=== PATIENT | female | born 1985 | race Caucasian/White ===

== ENCOUNTER → 2020-03-05 16:31 | Outpatient (BNVA) | payer OTHER, SELFPAY | PROVIDERS: Family Provider Nurse Practitioner Family; Visit Provider Nurse Practitioner | DX: R39.9 Unspecified symptoms and signs involving the genitourinary system (principal); M79.604 Pain in right leg; M79.605 Pain in left leg; N91.2 Amenorrhea, unspecified; R10.30 Lower abdominal pain, unspecified; Z68.33 Body mass index [BMI] 33.0-33.9, adult; F17.210 Nicotine dependence, cigarettes, uncomplicated; Z71.89 Other specified counseling | CPT/HCPCS: 81000 ==

== ENCOUNTER 2020-03-06 11:10 | Outpatient (CLI) | payer OTHER, SELFPAY ==
--- NOTE | 2020-03-06 10:15 | US_ITS ---
WS: [id number] TRANSABDOMINAL PELVIC AND TRANSVAGINAL PELVIC ULTRASOUND HISTORY: LEFT LOWER QUADRANT PAIN COMPARISON: 02/07/2018 Uterus: 8.13 cm x 5.5 cm x 4.8 cm. Retroverted uterus. Normal size. No fibroid or mass. Endometrium: 1.3 cm. Normal size and echogenicity. Right ovary: 4.3 cm x 3.0 cm x 3.0 cm. Normal size ovary with small follicles. Normal vascularity. Left ovary: 3.3 cm x 1.9 cm x 1.7 cm. Normal size ovary with normal vascularity. Small follicles. No free fluid. US/US pelvic with transvaginal IMPRESSION: Normal pelvic ultrasound. No evidence for torsion.
== END 2020-03-06 11:11 | disposition home or self-care (01) ==
LOC: RAD 11:12
PROVIDERS: Family Provider Nurse Practitioner Family; Visit Provider Family Medicine
DX: R10.32 Left lower quadrant pain (principal)
CPT/HCPCS: 76830; 76856; 81025

== ENCOUNTER → 2020-06-07 09:31 | Outpatient (BNVA) | payer OTHER, SELFPAY | PROVIDERS: Family Provider Nurse Practitioner Family; Referring Provider Nurse Practitioner Family; Visit Provider Anesthesiology Pain Medicine | DX: M79.7 Fibromyalgia (principal); M54.16 Radiculopathy, lumbar region; M62.830 Muscle spasm of back; F17.210 Nicotine dependence, cigarettes, uncomplicated; Z79.891 Long term (current) use of opiate analgesic; M51.36 Other intervertebral disc degeneration, lumbar region; M47.816 Spondylosis without myelopathy or radiculopathy, lumbar region; M54.9 Dorsalgia, unspecified | CPT/HCPCS: 99204 ==

== ENCOUNTER → 2020-06-24 12:46 | Outpatient (BNVA) | payer OTHER, SELFPAY | PROVIDERS: Family Provider Nurse Practitioner Family; PCP Nurse Practitioner Family; Visit Provider Anesthesiology Pain Medicine | DX: M54.16 Radiculopathy, lumbar region (principal); M54.9 Dorsalgia, unspecified; F17.210 Nicotine dependence, cigarettes, uncomplicated | CPT/HCPCS: 64483; 64484; J1100; J3490 ==

== ENCOUNTER → 2020-07-08 08:44 | Outpatient (BNVA) | payer OTHER, SELFPAY | PROVIDERS: Family Provider Nurse Practitioner Family; PCP Nurse Practitioner Family; Visit Provider Anesthesiology Pain Medicine | DX: M51.17 Intervertebral disc disorders with radiculopathy, lumbosacral region (principal); M47.816 Spondylosis without myelopathy or radiculopathy, lumbar region; M51.36 Other intervertebral disc degeneration, lumbar region; M51.9 Unspecified thoracic, thoracolumbar and lumbosacral intervertebral disc disorder; M54.9 Dorsalgia, unspecified; M62.830 Muscle spasm of back; F17.210 Nicotine dependence, cigarettes, uncomplicated; Z79.891 Long term (current) use of opiate analgesic | CPT/HCPCS: 99214 ==

== ENCOUNTER 2020-08-06 07:53 | Outpatient (CLI) | payer OTHER, SELFPAY ==
--- NOTE | 2020-08-06 08:00 | MR_ITS ---
WS: [id number] MRI CERVICAL SPINE HISTORY: M54.12 - Radiculopathy, cervical region COMPARISON: None available. Straightening of the normal cervical lordosis. Disc spaces and vertebral body heights are normal. Signal within the cervical cord is normal. Visualized posterior fossa is unremarkable. Craniocervical junction, C1 and C2 relationship, odontoid process and soft tissues are normal. C2-C3: Normal. C3-C4: Minimal osteophytic ridging. No stenosis. C4-C5: Normal. C5-C6: Normal. C6-C7: Normal. C7-T1: Normal. Paraspinal soft tissue are normal. MR/MR cervical spin wo con* [id number] IMPRESSION: 1. Mild straightening of the normal cervical lordosis with mild osteophytic ri dging at the C3-4 level. 2. No significant stenosis or disc herniations.
--- NOTE | 2020-08-06 08:45 | MR_ITS ---
WS: [id number] MRI LUMBAR SPINE NONCONTRAST HISTORY: M54.16 - Radiculopathy, lumbar region COMPARISON: 05/03/2018 TECHNIQUE: Sagittal and axial multisequence imaging is submitted. Normal lumbar alignment with no compression fractures or marrow edema. Mild disc space narrowing and desiccation at L4-5. Conus terminates normally at L1. L1-L2: Normal. L2-L3: Normal. L3-L4: Normal. L4-L5: Mild annular disc bulging with a central disc protrusion with associated annular fissure. Very mild contact on the ventral thecal sac and displacement. No encroachment into the foramen or subarti cular recesses. Very minimal facet joint arthritis. L5-S1: Normal. Retroverted uterus. Multiple small peripheral follicles within each ovary. Due to the distribution of the follicles and the number of follicles, polycystic ovarian disease should be considered as a poss ible etiology. MR/MR lumbar spine wo con* [id number] IMPRESSION: 1. No significant central or foraminal stenosis. 2. Mild degenerative disc disease at L4-5 similar to 2018. 3. Shallow central disc protrusion with annular fissure at L4-5.
--- NOTE | 2020-08-06 09:30 | MR_ITS ---
WS: [id number] MRI THORACIC SPINE without contrast. HISTORY: M51.9 - Unspecified thoracic, thoracolumbar and lumbosacral intervertebral disc disorder COMPARISON: None available. TECHNIQUE: Multiplanar sequences are performed in sagittal and axial planes. Normal thoracic alignment. Disc spaces and vertebral body heights are normal. No marrow edema or frac ture. Signal within the cord is normal. No cord atrophy or enlargement. T1-2: Normal. T2-3: Normal. T3-4: Normal. T4-5: Normal. T5-6: Normal. T6-7: Normal. T7-8: Normal. T8-9: Normal. T9-10: Normal. T10-11: Normal. T11-12: Normal. MR/MR thoracic spin wo con* [id number] IMPRESSION: Normal MRI of thoracic spine.
--- NOTE | 2020-08-06 11:16 | XR_ITS ---
WS: [id number] LATERAL LUMBAR SPINE: 4 view. Lateral radiographs are performed in upright neutral, flexion and extension to the patient's toleranc e. AP views are also submitted. HISTORY: SPONDYLOSIS W/O MYELOPATHY OR RADICULOPATHY COMPARISON: 06/29/2018 Increase in lumbar lordosis. 3 mm retrolisthesis of L4. With flexion and extension there is no signif icant increase in the lumbar lordosis or L4 retrolisthesis. Facet joint arthritis is mild at L4-5 and L5-S1. Mild S-shaped curvature lumbar spine. Prior cholecystectomy. XR/XR lumbar spine f/e only [id number] IMPRESSION: 1. Mild S-shaped curvature lumbar spine. 2. Increase in lumbar lordosis. 3. L4 retrolisthesis by 3 mm with no instability.
== END 2020-08-06 07:54 | disposition home or self-care (01) ==
LOC: RADSHAW 07:55
PROVIDERS: Family Provider Nurse Practitioner Family; PCP Nurse Practitioner Family; Visit Provider Anesthesiology Pain Medicine
DX: M54.16 Radiculopathy, lumbar region (principal); M54.12 Radiculopathy, cervical region; M51.9 Unspecified thoracic, thoracolumbar and lumbosacral intervertebral disc disorder; M47.816 Spondylosis without myelopathy or radiculopathy, lumbar region; M40.56 Lordosis, unspecified, lumbar region; M51.36 Other intervertebral disc degeneration, lumbar region; M51.26 Other intervertebral disc displacement, lumbar region
CPT/HCPCS: 72120; 72141; 72146; 72148

== ENCOUNTER → 2020-08-07 10:05 | Outpatient (BNVA) | payer OTHER, SELFPAY | PROVIDERS: Family Provider Nurse Practitioner Family; PCP Nurse Practitioner Family; Visit Provider Anesthesiology Pain Medicine | DX: M51.17 Intervertebral disc disorders with radiculopathy, lumbosacral region (principal); M47.816 Spondylosis without myelopathy or radiculopathy, lumbar region; M51.36 Other intervertebral disc degeneration, lumbar region; M54.9 Dorsalgia, unspecified; M62.830 Muscle spasm of back; Z79.891 Long term (current) use of opiate analgesic | CPT/HCPCS: 99212; 99213 ==

== ENCOUNTER → 2021-01-08 09:30 | Outpatient (BNVA) | payer OTHER, SELFPAY | PROVIDERS: Family Provider Nurse Practitioner Family; PCP Nurse Practitioner Family; Visit Provider Anesthesiology Pain Medicine | DX: G89.29 Other chronic pain (principal); M54.9 Dorsalgia, unspecified; M47.816 Spondylosis without myelopathy or radiculopathy, lumbar region; M51.36 Other intervertebral disc degeneration, lumbar region; M54.16 Radiculopathy, lumbar region; M54.12 Radiculopathy, cervical region; M62.830 Muscle spasm of back; F17.210 Nicotine dependence, cigarettes, uncomplicated; Z79.891 Long term (current) use of opiate analgesic; M79.7 Fibromyalgia; G43.711 Chronic migraine without aura, intractable, with status migrainosus; M13.0 Polyarthritis, unspecified | CPT/HCPCS: 96372; 99204; 99214; J1885 ==

== ENCOUNTER → 2021-01-09 09:06 | Outpatient (BNVA) | payer OTHER, SELFPAY | PROVIDERS: Family Provider Nurse Practitioner Family; PCP Nurse Practitioner Family; Visit Provider Specialist | DX: M79.7 Fibromyalgia (principal); M13.0 Polyarthritis, unspecified; G43.711 Chronic migraine without aura, intractable, with status migrainosus | CPT/HCPCS: 82550; 85651; 86140; 86160; 86162; 86235; 86255; 86376; 86431 ==

== ENCOUNTER → 2021-02-05 10:57 | Outpatient (BNVA) | payer OTHER, SELFPAY | PROVIDERS: Family Provider Nurse Practitioner Family; PCP Nurse Practitioner Family; Visit Provider Anesthesiology Pain Medicine | DX: M54.9 Dorsalgia, unspecified (principal); M47.816 Spondylosis without myelopathy or radiculopathy, lumbar region; M51.36 Other intervertebral disc degeneration, lumbar region; M54.16 Radiculopathy, lumbar region; M54.12 Radiculopathy, cervical region; M62.830 Muscle spasm of back; F17.210 Nicotine dependence, cigarettes, uncomplicated | CPT/HCPCS: 99213 ==

== ENCOUNTER 2021-03-14 13:16 | Outpatient (CLI) | payer OTHER, SELFPAY ==
--- NOTE | 2021-03-14 13:21 | MM_ITS ---
WS: [id number] DIAGNOSTIC BILATERAL DIGITAL MAMMOGRAM WITH CAD Bilateral breast ultrasound, limited HISTORY: N63.21 - Unspecified lump in the left breast, RIGHT nodules also. COMPARISON: None available. TECHNIQUE: Bilateral craniocaudad, mediolateral oblique, and mediolateral views are submitted. Spot c ompression LEFT CC, RIGHT and LEFT MLO views. Computer aided detection utilized. Breast composition: There are scattered areas of fibroglandular density. Bilateral palpable triangular markers are placed over the upper outer quadrant of each breast. No mas s is identified. There is no distortion. No suspicious findings within either breast. Bilateral breast ultrasound, limited. RIGHT breast ultrasound at 12:00 is negative. No suspicious masses or shadowing. LEFT breast ultrasound at 12 and 1:00 is negative. No masses or shadowing. MM/[place] [id number] IMPRESSION: BI-RADS: 2-Benign FOLLOW UP: 1 Year Follow-up
== END 2021-03-14 13:17 | disposition home or self-care (01) ==
LOC: RADSHAW 13:18
PROVIDERS: Family Provider Nurse Practitioner Family; PCP Nurse Practitioner Family; Visit Provider Nurse Practitioner
DX: N63.21 Unspecified lump in the left breast, upper outer quadrant (principal); N63.11 Unspecified lump in the right breast, upper outer quadrant
CPT/HCPCS: 76642; 77066

== ENCOUNTER → 2021-04-18 16:24 | Outpatient (BNVA) | payer OTHER, SELFPAY | PROVIDERS: Family Provider Nurse Practitioner Family; PCP Nurse Practitioner Family; Visit Provider Registered Nurse Neonatal Intensive Care | DX: Z20.822 Contact with and (suspected) exposure to COVID-19 (principal) | CPT/HCPCS: 87635 ==

== ENCOUNTER → 2021-11-14 09:37 | Outpatient (BNVA) | payer BC, SELFPAY | PROVIDERS: Family Provider Nurse Practitioner Family; PCP Nurse Practitioner Family; Visit Provider Surgery | DX: Z20.822 Contact with and (suspected) exposure to COVID-19 (principal); Z11.52 Encounter for screening for COVID-19 | CPT/HCPCS: 87635 ==

== ENCOUNTER 2021-11-19 08:49 | Day surgery (SDC) | payer BC, SELFPAY ==
[2021-11-17 12:20] VITALS: BMI 33.1
--- NOTE | 2021-11-19 09:38 | P.ANESASSM_ITS ---
Pre-Anesthetic Assessment Height/Weight: Height 1.63 m Weight 87.543 kg Preop Diagnosis: diagnostic Operation Date: 11/19/21 10:15 Proposed Procedures p Colonoscopy 81333/k 59.0/constipation(Not Applicable) - Carl Smith MD Familial anesthetic complications: None Was Beta Roman taken within 24 hours: N/A Was Clonidine taken within 24 hours: N/A Social Tobacco and No alcohol Exam alert, oriented x 3 and regular rate & rhythm Airway Submandibular: within normal limits Cervical ROM: within normal limits Mallampati: Class II Dentition: full Pulmonary Chronic Obstructive Pulmonary Disease Metabolic Morbid Obesity [facility] [place] Fibromyalgia and Lower Back Pain Neuropsych Headache Anesthetic Plan ASA status: 3 Anesthesia: MAC Medications/Allergies Home Medications Medication Instructions Recorded Confirmed Last Taken Type duloxetine 30 mg capsule,delayed 30 mg PO DAILY #30 cap 02/05/21 11/17/21 Unknown Rx release (Cymbalta) lactulose 10 gram/15 mL (15 mL) 15 ml PO BID 28 Days #840 ml 10/21/21 11/17/21 Unknown Rx oral solution phentermine 37.5 mg tablet 37.5 mg PO DAILY 11/17/21 11/17/21 11/13/21 History Allergies Allergy/AdvReac Type Severity Reaction Status Date / Time No Known Allergies Allergy Verified 10/21/21 09:42 [facility] Anesthesia Medical History Chronic migraine Hx of migraines Ovarian cyst Salivary duct calculi Urinary tract infection Surgical History History of ovarian cystectomy Hx of cholecystectomy Hx of tubal ligation Family History Other Cancer Denies family history of Diabetes Dementia Hypertension Stroke Social History Smoking and tobacco status: former smoker Quit status (tobacco): considering quitting Second hand smoke exposure: Yes Smoking risk assessment/counseling performed?: Yes Alcohol intake: never Desire information about alcohol rehabilitation?: No Counseling given: No Desire information about substance/drug rehabilitation?: No Counseling given: No Adopted: No Caregiver/support person: No Lives independently: Yes Household members: children Housing: House Marital status: service: No History of recent travel: No Current gender identity: Female Female Reproductive History Date of last menstrual period: 12/23/20 Data Anesthesia Cardiac Studies: No Data to Display
[2021-11-19 09:47] VITALS: BP 124/70; PULSE 79; RESP 18; TEMP 36.1; O2SAT 99
--- NOTE | 2021-11-19 09:49 | W.PM.OPSFHP ---
Same Day Surgery H&P Indication for Procedure/HPI DATE OF PROCEDURE: November 19, 2021 CHIEF COMPLAINT/INDICATIONFOR SURGICAL PROCEDURE: colonoscopy PREOP DIAGNOSIS: diagnostic PLANNED PROCEDURE: Operation Date: 11/19/21 10:15 Proposed Procedures p Colonoscopy 83119/k 59.0/constipation(Not Applicable) - Carl Smith MD Medications/Allergies* Home Medications Medication Instructions Recorded Confirmed Type phentermine 37.5 mg tablet 37.5 mg PO DAILY 11/17/21 11/17/21 History Allergies/Adverse Reactions Allergy/AdvReac Type Severity Reaction Status Date / Time No Known Allergies Allergy Verified 11/19/21 09:48 Pertinent History/Comorbid Conditions* Medical History (Updated 10/21/21 @ 10:00 by Carl Smith MD) Chronic migraine Hx of migraines Ovarian cyst Salivary duct calculi Urinary tract infection Surgical History (Updated 10/21/21 @ 10:00 by Carl Smith MD) History of ovarian cystectomy Hx of cholecystectomy Hx of tubal ligation Family History (Updated 02/04/21 @ 15:16 by GABRIELLA Thomason) Cancer Denies family history of Diabetes Dementia Hypertension Stroke Social History Smoking and tobacco status: former smoker Quit status (tobacco): considering quitting Second hand smoke exposure: Yes Smoking risk assessment/counseling performed?: Yes Alcohol intake: never Desire information about alcohol rehabilitation?: No Counseling given: No Desire information about substance/drug rehabilitation?: No Counseling given: No Adopted: No Caregiver/support person: No Lives independently: Yes Household members: children Housing: House Marital status: service: No History of recent travel: No Current gender identity: Female Pertinent Exam Findings alert, oriented x 3 and regular rate & rhythm Recommendations Surgery/Procedure today Coding Level of Care Code Acute 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
[2021-11-19] MEDS: sodium chloride 0.9% 1,000 ML 30 ML IV (09:55)
[2021-11-19 10:38] VITALS: BP 90/56; PULSE 78; RESP 16; TEMP 36.1; O2SAT 95
[2021-11-19 10:52] VITALS: BP 96/66; PULSE 64; RESP 18; O2SAT 97
--- NOTE | 2021-11-19 10:59 | ANE.PACU2 ---
Inpatient post-anesthesia follow up: Airway intact: Yes Vital signs: Temperature 97 F Pulse Rate 64 Respiratory Rate 18 Blood Pressure 96/66 Pulse Oximetry 97 Oxygen Delivery Me thod Room Air Oxygen Flow Rate Fraction of Inspir ed Oxygen Hydration adequate: Yes Nausea and vomiting: No Pain level: 1 Mental status: Baseline
== END 2021-11-19 11:05 | disposition home or self-care (01) ==
PROVIDERS: PCP Nurse Practitioner Family; Visit Provider Surgery
PROC: 0DJD8ZZ Inspection of Lower Intestinal Tract, Via Natural or Artificial Opening Endoscopic (ICD-10-PCS; CPT 45378; principal; 2021-11-19 10:15)
DX: K59.00 Constipation, unspecified (principal); Z87.891 Personal history of nicotine dependence; D12.4 Benign neoplasm of descending colon; J44.9 Chronic obstructive pulmonary disease, unspecified; E66.01 Morbid (severe) obesity due to excess calories; Z68.33 Body mass index [BMI] 33.0-33.9, adult; M79.7 Fibromyalgia
CPT/HCPCS: 45385; 88305; J2704; J7030

== ENCOUNTER → 2022-01-28 11:43 | Outpatient (BNVA) | payer BC, MEDICAID, SELFPAY | PROVIDERS: PCP Nurse Practitioner Family; Visit Provider Nurse Practitioner Family | DX: R07.9 Chest pain, unspecified (principal) | CPT/HCPCS: 71046; 80053; 84443; 85025 ==

== ENCOUNTER 2022-08-14 11:01 | Outpatient (CLI) | payer BC, MEDICAID, SELFPAY ==
--- NOTE | 2022-08-14 11:12 | MM_ITS ---
WS: [id number] Bilateral diagnostic 3D tomosynthesis digital mammogram, 08/14/2022 Clinical Data: NIPPLE DISCHARGE Comparison: 03/14/2021 Findings: The breast parenchymal pattern pattern shows fibroglandular tissue. There are no spiculated masses or clustered calcifications. There are no secondary signs of carcinoma. There are small lymph nodes in both axilla. Impression: 1. Negative bilateral mammograms unchanged. 2. Recommend annual screening mammograms. MM/[place] [id number] BIRADS: 1-Negative FOLLOW UP: 1 Year Follow-up The CAD furnace checker was used.
== END 2022-08-14 11:02 | disposition home or self-care (01) ==
LOC: RAD 11:05
PROVIDERS: PCP Nurse Practitioner Family; Visit Provider Nurse Practitioner Family
DX: N64.52 Nipple discharge (principal)
CPT/HCPCS: 77062; G0279

== ENCOUNTER → 2022-10-12 15:33 | Outpatient (BNVA) | payer BC, MEDICAID, SELFPAY | PROVIDERS: PCP Family Medicine; Visit Provider Family Medicine | DX: R10.31 Right lower quadrant pain (principal) | CPT/HCPCS: 81000; 85025 ==

== ENCOUNTER 2022-10-14 09:28 | Outpatient (CLI) | payer BC, MEDICAID, SELFPAY ==
--- NOTE | 2022-10-14 09:30 | US_ITS ---
WS: [id number] Complete ABDOMINAL ULTRASOUND HISTORY: R10.31 - Right lower quadrant pain COMPARISON: 01/26/2011 Liver: 16.0 cm in length. Liver is normal size and echogenicity with no mass or intrahepatic dilatati on. Portal Vein: Normal hepatopetal flow with monophasic waveform. Gallbladder: Prior cholecystectomy. Pancreas: Normal size and echogenicity. CBD: 0.5 cm. Right kidney: 12.1 cm x 4.5 cm x 4.8 cm. No mass, cortical thickening or hydronephrosis. Left kidney: 12.5 cm x 6.3 cm x 5.1 cm. No mass, cortical thickening or hydronephrosis. Spleen: Normal size and echogenicity. Abdominal aorta and IVC are within normal limits. No ascites. US/US abdomen complete* [id number] IMPRESSION: 1. Prior cholecystectomy. 2. Otherwise normal.
--- NOTE | 2022-10-14 12:45 | US_ITS ---
WS: [id number] TRANSABDOMINAL PELVIC AND TRANSVAGINAL PELVIC ULTRASOUND HISTORY: R10.31 - Right lower quadrant pain COMPARISON: 03/06/2020 Uterus: 9.1 cm x 5.7 cm x 5.2 cm. Normal size anteverted uterus with slight retroflexion. During tay svaginal imaging there is poor retroflexion of the uterus. No fibroid or mass. Endometrium: 1.4 cm. Normal homogeneity. No mass or increased vascularity. Right ovary: 5.2 cm x 4.0 cm x 4.1 cm. Mildly enlarged ovary secondary to a simple cyst measuring 3.4 x 3.3 x 2.9 cm. No solid component. The adjacent ovary is normal. Left ovary: 3.8 cm x 3.0 cm x 2.6 cm. Normal size ovary. No solid mass. Multiple small follicles. Nor mal vascularity. Free fluid: No free fluid. US/US pelv w/transvag [id number] IMPRESSION: 1. Normal endometrium. 2. Simple RIGHT ovarian cyst (O-RADS 2). No follow-up necessary.
== END 2022-10-14 09:29 | disposition home or self-care (01) ==
LOC: RAD 09:28
PROVIDERS: PCP Family Medicine; Visit Provider Family Medicine
DX: N83.291 Other ovarian cyst, right side (principal)
CPT/HCPCS: 76700; 76830; 76856

== ENCOUNTER → 2023-01-28 14:59 | Outpatient (BNVA) | payer BC, MEDICAID, SELFPAY | PROVIDERS: PCP Family Medicine; Visit Provider Nurse Practitioner | DX: R10.2 Pelvic and perineal pain (principal); E66.9 Obesity, unspecified | CPT/HCPCS: 80053; 81000; 85025 ==

== ENCOUNTER → 2023-02-08 14:18 | Outpatient (BNVA) | payer BC, MEDICAID, SELFPAY | PROVIDERS: PCP Family Medicine; Visit Provider Family Medicine | DX: R10.31 Right lower quadrant pain (principal); N76.0 Acute vaginitis; B96.89 Other specified bacterial agents as the cause of diseases classified elsewhere | CPT/HCPCS: 81000 ==

== ENCOUNTER → 2023-04-13 09:30 | Outpatient (BNVA) | payer BC, MEDICAID, SELFPAY | PROVIDERS: PCP Family Medicine; Referring Provider Nurse Practitioner Family; Visit Provider Physician Assistant | DX: M54.12 Radiculopathy, cervical region (principal) | CPT/HCPCS: 72050 ==

== ENCOUNTER 2023-04-21 10:41 | Outpatient (CLI) | payer BC, MEDICAID, SELFPAY ==
--- NOTE | 2023-04-21 11:00 | MR_ITS ---
WS: [id number] MRI CERVICAL SPINE NONCONTRAST HISTORY: cervical spine pain LEFT arm radiculopathy. COMPARISON: 08/06/2020 Technique: Multiplanar, multisequence noncontrast imaging of the cervical spine. Straightening and slight reversal of the normal cervical lordosis. Reversal centered at C4-5. New sin ce the prior study from 2019. Signal within the cervical cord is normal. Visualized posterior fossa is unremarkable. Craniocervical junction, C1 and C2 relationship, odontoid process and soft tissues are normal. C2-C3: Normal. C3-C4: Mild disc bulging and osteophytosis. No significant stenosis. C4-C5: Small bilateral foraminal osteophytes. No significant stenosis. C5-C6: Normal. C6-C7: Normal. C7-T1: Normal. Paraspinal soft tissue are normal. IMPRESSION: 1. No significant central or foraminal stenosis. 2. New reversal the normal cervical lordosis with cervical spine straightening. May be due to muscle spasm. 3. Very small foraminal osteophytes at C3-4 and C4-5 without significant stenosis. No disc protrusion s or herniations.
== END 2023-04-21 10:42 | disposition home or self-care (01) ==
PROVIDERS: PCP Family Medicine; Visit Provider Physician Assistant
DX: M54.12 Radiculopathy, cervical region (principal); M25.78 Osteophyte, vertebrae; M40.50 Lordosis, unspecified, site unspecified
CPT/HCPCS: 72141

== ENCOUNTER → 2023-05-13 11:30 | Outpatient (BNVA) | payer BC, MEDICAID, SELFPAY | PROVIDERS: PCP Family Medicine; Visit Provider Family Medicine | DX: G43.711 Chronic migraine without aura, intractable, with status migrainosus (principal); R10.32 Left lower quadrant pain; R23.2 Flushing | CPT/HCPCS: 82672; 84144 ==

== ENCOUNTER 2023-05-26 08:43 | Outpatient (CLI) | payer BC, MEDICAID, SELFPAY ==
--- NOTE | 2023-05-26 08:30 | US_ITS ---
WS: [id number] Complete ABDOMINAL ULTRASOUND HISTORY: R10.32 - Left lower quadrant pain COMPARISON: 10/14/2022 Liver: 15.4 cm in length. Normal size liver and echogenicity. No bile duct dilatation or mass. Portal Vein: Normal hepatopetal flow with monophasic waveform. Gallbladder: Cholecystectomy. CBD: 0.6 cm Pancreas: Head and body are negative. The tail is obscured by bowel gas. Right kidney: 10.9 cm x 4.0 x 4.3 cm. Cortex:1.1 cm. Normal size and echogenicity. No hydronephrosis or mass. Left kidney: 11.1 cm x 4.8 cm x 4.9 cm. Cortex: 1.2 cm. Normal size and echogenicity. No hydronephrosis or mass. Spleen: Normal. Aorta and IVC: Unremarkable abdominal aorta and IVC. Additional imaging of the LEFT lower quadrant is negative. Impression: 1. Prior cholecystectomy. 2. Otherwise no abnormality within the abdominal ultrasound.
== END 2023-05-26 08:44 | disposition home or self-care (01) ==
PROVIDERS: Visit Provider Family Medicine
DX: R10.32 Left lower quadrant pain (principal); Z90.49 Acquired absence of other specified parts of digestive tract
CPT/HCPCS: 76700

== ENCOUNTER → 2023-06-02 14:58 | Outpatient (BNVA) | payer BC, MEDICAID, SELFPAY | PROVIDERS: Visit Provider Family Medicine | DX: J02.9 Acute pharyngitis, unspecified (principal); G43.909 Migraine, unspecified, not intractable, without status migrainosus; J03.90 Acute tonsillitis, unspecified | CPT/HCPCS: 87071; 87880 ==

== ENCOUNTER 2023-06-14 06:00 | Outpatient (RCR) | payer BC, MEDICAID, SELFPAY | END 2023-06-29 23:59 | disposition home or self-care (01) | LOC: APT 06:00 | PROVIDERS: Visit Provider General Practice | DX: G89.4 Chronic pain syndrome (principal); M54.2 Cervicalgia | CPT/HCPCS: 97161 ==

== ENCOUNTER → 2023-08-05 08:29 | Outpatient (BNVA) | payer BC, MEDICAID, SELFPAY | PROVIDERS: PCP Family Medicine; Visit Provider Orthopaedic Surgery | DX: M54.2 Cervicalgia (principal) | CPT/HCPCS: 72040 ==

== ENCOUNTER → 2023-08-10 15:20 | Outpatient (BNVA) | payer BC, MEDICAID, SELFPAY | PROVIDERS: PCP Family Medicine; Visit Provider Family Medicine | DX: J02.9 Acute pharyngitis, unspecified (principal); J01.90 Acute sinusitis, unspecified; J03.90 Acute tonsillitis, unspecified; J01.00 Acute maxillary sinusitis, unspecified | CPT/HCPCS: 87071; 87880 ==

== ENCOUNTER → 2023-10-05 15:04 | Outpatient (BNVA) | payer BC, MEDICAID, SELFPAY | PROVIDERS: PCP Family Medicine; Visit Provider Student in an Organized Health Care Education/Training Program | DX: M25.531 Pain in right wrist; M25.532 Pain in left wrist; G56.22 Lesion of ulnar nerve, left upper limb | CPT/HCPCS: 73110 ==

== ENCOUNTER → 2023-10-20 14:51 | Outpatient (BNVA) | payer BC, MEDICAID, SELFPAY | PROVIDERS: PCP Family Medicine; Visit Provider Registered Nurse Neonatal Intensive Care | DX: J02.9 Acute pharyngitis, unspecified (principal) | CPT/HCPCS: 87880 ==

== ENCOUNTER 2023-11-17 10:09 | Day surgery (SDC) | payer BC, MEDICAID, SELFPAY ==
[2023-11-17] VITALS (16 sets, daily range): BP systolic 123–149; BP diastolic 68–78; PULSE 58–96; RESP 12–21; TEMP 36.2–37.1; O2SAT 91–99; BMI 35.5
--- NOTE | 2023-11-17 10:34 | P.ANESASSM_ITS ---
Pre-Anesthetic Assessment Height/Weight: Height 1.63 m Weight 93.894 kg O2 Del Method Room Air 11/17/23 10:22 Operation Date: 11/17/23 11:40 Proposed Procedures p Cubital Tunnel Release WITH POSSIBLE ULNAR NERVE TRANSPOSITION(Left) - Samir Carri, DO s Guyon Canal Release(Left) - Samir Carri DO Familial anesthetic complications: None Was Beta Roman taken within 24 hours: N/A Was Clonidine taken within 24 hours: N/A Last intake: Intake Last Liquid Date 11/16/23 Last Liquid Time 20:00 Last Solid Date 11/16/23 Last Solid Time 20:00 Social Tobacco (encouraged smoking cessation) and No alcohol Exam alert, oriented x 3, clear to auscultation bilaterally and regular rate & rhythm Airway Mallampati: Class II Dentition: full and other (crowns) CV/HEM perscribed HCTZ for hypertension after hysterectomy-induced pain Anesthetic Plan ASA status: 2 Anesthesia: General Risk of > 500 ml blood loss (7ml/kg in children): No Medications/Allergies Home Medications Medication Instructions Recorded Confirmed Last Taken Type hydrochlorothiazide 12.5 mg tablet 12.5 mg PO DAILY 01/28/23 11/16/23 1 Day Ago History ~11/15/23 pen needle, diabetic 33 gauge x #100 ea 01/28/23 10/20/23 Unknown Rx duloxetine 60 mg capsule,delayed 60 mg PO DAILY #30 caps 03/29/23 11/16/23 11/16/23 Rx release propranolol 20 mg tablet 20 mg PO .qhs #30 tabs 05/13/23 11/16/23 Unknown Rx sumatriptan succinate 100 mg See Rx Instructions PO .COMPLEX 05/13/23 11/16/23 Unknown Rx tablet (Imitrex) #14 tabs nortriptyline 75 mg capsule 75 mg PO DAILY #30 caps 06/02/23 11/16/23 Unknown Rx rimegepant 75 mg disintegrating 75 mg PO ONCE PRN migraine 06/02/23 11/16/23 Unknown Rx tablet (Nurtec ODT) headache #8 tabs tizanidine 4 mg capsule 4 mg PO .qhs muscle spasticity #30 06/02/23 11/16/23 Unknown Rx caps benzonatate 100 mg capsule 100 mg PO TID PRN cough #30 caps 08/10/23 11/16/23 Unknown Rx fluconazole 150 mg tablet 150 mg PO DAILY 3 days #3 tabs 09/08/23 11/16/23 Unknown Rx Allergies Allergy/AdvReac Type Severity Reaction Status Date / Time No Known Allergies Allergy Verified 11/16/23 09:13 [facility] Anesthesia Medical History Obesity (BMI 30-39.9) Allergic rhinitis due to allergen Sebaceous cyst of axilla Salivary duct calculi Ovarian cyst Urinary tract infection Hx of migraines Chronic migraine Surgical History History of ovarian cystectomy Hx of cholecystectomy Hx of tubal ligation Family History Other Cancer Denies family history of Diabetes Dementia Hypertension Stroke Social History Smoking and tobacco/nicotine status: current every day tobacco/nicotine user cigarettes Packs smoked per day: 0.5 Quit status (tobacco/nicotine): considering quitting Second hand smoke exposure: Yes Alcohol intake: never Substance/Drug Use: unknown Adopted: No Caregiver/support person: No Lives independently: Yes Household members: children Housing: House Marital status: service: No Do you think of yourself as: Straight/Heterosexual Current gender identity: Female Data Anesthesia Cardiac Studies: No Data to Display
[2023-11-17] MEDS: ketorolac 30 mg/mL INJ IVP (10:45)
[2023-11-17] MEDS: acetaminophen 1,000 MG/100 ML PIGGYBACK 400 MG IV (10:46)
[2023-11-17] MEDS: scopolamine 1.5 Patch 1 PATCH TRANSDERMA (10:46)
[2023-11-17] MEDS: sodium chloride 0.9% 1,000 ML 30 ML IV (10:47)
[2023-11-17 11:19] LABS: Anion Gap 13.9 (5-19); Blood Urea Nitrogen 11 mg/dL (6-20); Calcium 8.9 mg/dL (8.5-10.5); Carbon Dioxide 26 mmol/L (22-29); Chloride 104 mmol/L (98-107); Creatinine Clr Calc Pharmacy 141.2439; Glomerular Filtration Rate 111.9 mL/min (90-130); Glucose 92 mg/dL (65-115); Osmolality Calculated 289 mOsm/kg (285-295); Potassium 3.9 mmol/L (3.5-5.1); Sodium 140 mmol/L (136-145)
--- NOTE | 2023-11-17 11:39 | W.PM.OPSFHP ---
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, left Guyon canal syndrome PLANNED PROCEDURE: Operation Date: 11/17/23 11:40 Proposed Procedures p Cubital Tunnel Release WITH POSSIBLE ULNAR NERVE TRANSPOSITION(Left) - Samir Christina DO s Guyon Canal Release(Left) - Samir Christina DO Medications/Allergies* Home Medications Medication Instructions Recorded Confirmed Type hydrochlorothiazide 12.5 mg tablet 12.5 mg PO DAILY 01/28/23 11/16/23 History Allergies/Adverse Reactions Allergy/AdvReac Type Severity Reaction Status Date / Time No Known Allergies Allergy Verified 11/16/23 09:13 Current Medications: Generic Name Dose Route Start Last Admin Trade Name Freq PRN Reason Stop Dose Admin Sodium Chloride 1,000 mls @ 30 mls/hr 11/17/23 10:30 11/17/23 10:47 Sodium Chloride 0.9% IV 11/18/23 10:29 30 mls/hr .Q24H CASSANDRA Administration Pertinent History/Comorbid Conditions* Medical History (Updated 10/09/23 @ 09:44 by Samir Christina DO) Obesity (BMI 30-39.9) Allergic rhinitis due to allergen Sebaceous cyst of axilla Salivary duct calculi Ovarian cyst Urinary tract infection Hx of migraines Chronic migraine Surgical History (Updated 10/21/21 @ 10:00 by Carl Smith MD) History of ovarian cystectomy Hx of cholecystectomy Hx of tubal ligation Family History (Updated 02/04/21 @ 15:16 by Raven Motta MA) Cancer Denies family history of Diabetes Dementia Hypertension Stroke Social History Smoking and tobacco/nicotine status: current every day tobacco/nicotine user cigarettes Packs smoked per day: 0.5 Quit status (tobacco/nicotine): considering quitting Second hand smoke exposure: Yes Alcohol intake: never Substance/Drug Use: unknown Adopted: No Caregiver/support person: No Lives independently: Yes Household members: children Housing: House Marital status: service: No Do you think of yourself as: Straight/Heterosexual Current gender identity: Female Pertinent Exam Findings alert, oriented x 3, operative site marked and procedure specific exam findings Left upper extremity positive Tinel's at the elbow with ulnar nerve paresthesias as well as positive Tinel's at the wrist with ulnar paresthesias. Recommendations Surgery/Procedure today Other Plans: Plan to proceed to the OR today with left cubital tunnel release with possible ulnar nerve transposition, left ulnar nerve release at the wrist at Guyon's canal Patient understands and Zetts procedure risk benefits complication alternatives of surgery and through shared decision make elects proceed with surgical intervention. All questions answered. Coding Level of Care Code Acute Code for g Fwd
[2023-11-17] MEDS: ceFAZolin 2,000 MG in sodium chloride 0.9% (plus) 50 ML 100 MG IV (11:59)
[2023-11-17] MEDS: lidocaine-epi 1% 20 mL INJ 10 ML INJECTION (12:24)
[2023-11-17] MEDS: ROPivacaine 0.5% SDV 30 mL 50 MG INJECTION (12:24)
[2023-11-17] MEDS: fentaNYL 50 mcg/mL INJ 2mL IVP ×2 (13:29→13:53)
--- NOTE | 2023-11-17 13:32 | P.BOP_ITS ---
Date of Procedure: [November 17, 2023] Surgeon: [Dr. Christina DO] Animal Eviscerator(s): [Faustino Christina PA-C] Procedure(s) performed: [Left cubital tunnel release and left Guyon's canal release] Findings of the procedure(s): [Left ulnar nerve entrapment at the elbow and ulnar nerve entrapment at Guyon's canal] Estimated blood loss: [5 ml] Specimen(s) removed: [n/a] Post-operative diagnosis: [Left ulnar nerve entrapment at the elbow and ulnar nerve entrapment at Guyon's canal]
--- NOTE | 2023-11-17 13:42 | PM.PACU ---
PACU note Narrative: Patient is a 38-year-old female just underwent a left cubital tunnel release and left Guyon's canal release. Patient transferred to PACU in stable condition. Pain is well controlled. Dressing and splint on hand is dry and in place. Patient's fingers are warm and well-perfused. Patient can wiggle fingers. normal cap refill under 2 seconds. Limited elbow ROM due to dressing. Unable to assess sensation due to residual localized anesthetic. Exam: awake Disposition: discharged
[2023-11-17] MEDS: HYDROcodone-acetaminophen 5-325 mg Tablet 1 TAB PO (14:24)
--- NOTE | 2023-11-17 15:10 | ANE.PACU2 ---
Inpatient post-anesthesia follow up: Airway intact: Yes Vital signs: Temperature 98.7 F Pulse Rate 96 Respiratory Rate 18 Blood Pressure 133/71 Pulse Oximetry 97 Oxygen Delivery Me thod Room Air Oxygen Flow Rate 2 Fraction of Inspir ed Oxygen Hydration adequate: Yes Nausea and vomiting: No Pain level: 1 Mental status: Baseline
--- NOTE | 2023-11-17 15:16 | P.OP_ITS ---
Operative Report Date of procedure: November 17, 2023 Surgeon: Samir Christina DO Precision Devices Inspector/Tester: Faustino Christina PA-C: PA was necessary for assistance in this case with hand positioning to execute the procedure, retraction and protection of neurovascular structures as well as to assist with wound closure and dressing application. 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 33 minutes IV fluids: 700mL Complications: None Findings: See operative report narrative Condition: stable Disposition: same day Brief History: Patient's been seen and worked up in the outpatient setting and findings consistent with preoperative diagnosis.? Patient has Left cubital tunnel and Left ulnar entrapment at guyons canal which has been worked up in the outpatient setting has physical exam findings consistent with this. Patient's nerve study consistent with this. Exam findings consistent with preoperative diagnosis. Patient's failed conservative treatment.? As result through shared decision making agreed to proceed with,?Left ulnar nerve release at the wrist and at the elbow. We talked about tx options as nonoperative and operative intervention.? Understands risk benefits complication alternatives surgical nonsurgical treatment options.? Understanding risks pt agrees to proceed with surgical intervention. Understanding these risks pt agrees to proceed with surgery.? Consent obtained in office. Procedure: Patient seen evaluate in the preoperative holding area.? Consent was reviewed and signed with patient.? Correct extremity marked.? Patient seen evaluated by anesthesia department once cleared for surgery was then taken back to the operative suite placed in supine position all bony prominences well-padded patient properly secured to bed.? Left upper extremity placed onto armboard.? Nonsterile tourniquet applied Left upper arm.? Patient then underwent anesthesia per the anesthesia department.? Patient's Left upper extremity was then prepped and draped in standard orthopedic fashion.? Final timeout performed.? Patient received appropriate preoperative antibiotics. Esmarch was used exsanguinate the Left upper extremity.? Tourniquet was insufflated to 250 mmHg. I started with my release of the ulnar nerve distally. An extensive laterally based palmar incision that extended proximal past the wrist crease with a June incision was made directly over Guyon's canal. At this point in time incision was made between the Pisa form and hamate to follow neurovascular bundle of Guyon's canal. sharp scalpel incision was subsequently made through skin and then I switched to Littler dissection scissors. At this point in time I dissected down over top guyons canal release the brevis muscle belly along the hypothenar region to obtain access into Guyon's canal. Thick band of fascia was noted proximally just proximal to the wrist crease this was released and made sure there was complete decompression of the ulnar nerve proximally just prior to Guyon's canal subsequently released guyon canal and direct visualization with sharp scalpel excision as well as Littler dissection scissors with care utilizing my esl instructional assistant to protect the neurovascular bundle. At this point in time I continued to perform release of the fascia/the roof of Guyon's canal all the way to its most distal extent and the nerve was found to be completely free and untethered. I then in order to perform release of the deep motor branch I then mobilized my dissection around the ulnar nerve and identified the deep motor branch as it courses towards the under knee fascia connected with the hamate. I then utilized dissection scissors and under direct visualization completed my release carefully of the fascial bands tethering over top of the deep motor branch. At this point in time the ulnar nerve was completely decompressed through Guyon's canal and ulnar nerve had complete laxity with no areas of entrapment or tethering. No masses were noted within the contents of the guyons canal.? This completed the ulnar nerve release at the wrist. I subsequently irrigated the wound bed and placed a wet Ray-Irwin into the incision for later closure. Next marked out the landmarks of the Left elbow of the medial epicondyle and olecranon and made a curvilinear incision following the course of the ulnar nerve at the medial aspect of the elbow.? Sharp scalpel incision was made through skin and subcutaneous tissue.? Next I switched to Littler dissection scissors and spread in plane of the medial antebrachial cutaneous nerve branching which was protected throughout this part of the dissection.? Then I directly came down over the fascia and identified the 2 heads of the FCU fascia and split in the middle and subsequently identified my ulnar nerve distally.? This was then completely released distally under direct visualization and loupe magnification.? Once the nerve was then identified I then subsequently tracked this proximally and released this through Fabian's ligament as well as complete decompression of the nerve proximally all the way past the intermuscular septum.? The nerve was completely released and decompressed both proximally and distally.? I then took the elbow through range of motion and there was no instability or subluxating of the ulnar nerve.? This completed?cubital?tunnel release.? ?Next the wound bed was thoroughly irrigated.? Tourniquet was deflated.? Hemostasis was satisfactory at the?cubital?tunnel release surgery site. I then inspected the wrist incision and this was found to have satisfactory hemostasis and all this was maintained through bipolar electrocautery.? At this point time I sequentially closed?cubital?tunnel site with 3-0 Vicryl suture in a running horizontal mattress nylon stitch.? ? The guyons canal release surgery was then closed in standard interrupted mattress fashion.? Dressing was Xeroform 4 x 4's ABD Curlex soft roll and an Brodie wrap has a bulky soft dressing and volar splint. Patient was then awakened from anesthesia and taken to PACU in stable condition. Disposition: Patient taken to PACU in stable condition recovering well.? Patient will receive appropriate discharge instructions as well as pain medication postoperatively.? We will follow-up with ortho in the office in 2 weeks.? Patient understands agrees with current plan.? All questions answered.? pt understands if any questions or concerns and contact the office for follow-up appointment..
== END 2023-11-17 15:12 | disposition home or self-care (01) ==
PROVIDERS: Anesthesiology; PCP Family Medicine; Visit Provider Student in an Organized Health Care Education/Training Program
PROC: (CPT 64718; principal; 2023-11-17 11:35)
PROC: (CPT 64719; 2023-11-17 11:35)
DX: G56.22 Lesion of ulnar nerve, left upper limb (principal); I10 Essential (primary) hypertension; E66.9 Obesity, unspecified; Z68.35 Body mass index [BMI] 35.0-35.9, adult; F17.210 Nicotine dependence, cigarettes, uncomplicated
CPT/HCPCS: 64718; 64719; 80048; J0131; J0690; J1100; J1170; J1885; J2250; J2405; J2704; J2795; J3010; J7030

== ENCOUNTER 2023-12-08 10:26 | Outpatient (RCR) | payer BC, MEDICAID, SELFPAY | END 2023-12-28 23:59 | disposition home or self-care (01) | LOC: SOT 10:26 | PROVIDERS: PCP Family Medicine; Visit Provider Physician Assistant | DX: Z47.89 Encounter for other orthopedic aftercare (principal) | CPT/HCPCS: 97110; 97140; 97165; 97530 ==

== ENCOUNTER 2024-01-28 12:58 | Emergency (ER) | payer BC, MEDICAID, SELFPAY ==
[2024-01-28 13:06] VITALS: BP 123/87; PULSE 83; RESP 18; TEMP 36.7; O2SAT 100
--- NOTE | 2024-01-28 13:27 | US_ITS ---
WS: [id number] ULTRASOUND PELVIS TECHNIQUE: Transvaginal. CLINICAL INFORMATION: told she has a large L ovarian cyst; severe pain LMP: Prior hysterectomy and RIGHT oophorectomy : No. COMPARISON: CT 01/28/2024 FINDINGS: Uterus Prior hysterectomy Adnexa: Multi follicular LEFT ovary. Normal flow to the LEFT ovary. No evidence of torsion. No surrou nding free fluid. No large ovarian cyst. Largest dominant follicle measures 13 mm. Right ovary size: Removed Left ovary size: 4.1 x 2.3 x 3.2 cm Free fluid: None. Other findings: None. US/US transvaginal [id number] IMPRESSION: 1. Prior hysterectomy and RIGHT oophorectomy. 2. Multi follicular LEFT ovary measures 4.1 x 2.3 x 3.2 cm. No visualized larg e LEFT ovarian cyst. 3. Normal vascularity to the LEFT ovary.
--- NOTE | 2024-01-28 13:27 | CT_ITS ---
WS: [id number] CT ABDOMEN PELVIS TECHNIQUE: Contrast-enhanced CT of the abdomen and pelvis with coronal and sagittal reformatted image s. CLINICAL INFORMATION: severe lower abominal pain COMPARISON: CT stone protocol 2019 DLP: 967.[address] scans at [facility] use at least one of these dose optimization techniques: automated e xposure control; mA and/or kV adjustment per patient size (includes targeted exams where dose is matc hed to clinical indication); or iterative reconstruction. FINDINGS: Hepatomegaly. Diffuse fatty infiltration of the liver. Cholecystectomy. Normal portal vein and spleni c vein. Fatty atrophy of the pancreas. Lung bases are well aerated. Adrenal glands are normal. No hyd ronephrosis. Normal renal parenchymal enhancement. A few tiny renal cysts. Normal caliber abdominal a brenda. Normal spleen. Tiny fat-containing umbilical hernia. Bladder is decompressed. Tortuous sigmoid colon. Mild splenic flexure constipation. No other acute fi ndings. CT/CT abdomen pelvis w con* [id number] IMPRESSION: 1. Normal appendix in the RIGHT lower quadrant. No evidence of acute appendici tis. 2. Multi follicular LEFT ovary. No surrounding fluid or edema. Ultrasound is p ending. 3. History of prior hysterectomy and RIGHT oophorectomy. 4. Diffuse fatty infiltration of the liver. 5. Prior cholecystectomy. 6. Distended stomach with air-fluid level and food/fluid products 7. No free fluid in the abdomen or pelvis.
--- NOTE | 2024-01-28 13:27 | W.ED.ABDPA2 ---
HPI - Abdominal Pain General: Chief Complaint: Abdominal Pain Stated Complaint: lower back and lower abd pain Time Seen by Provider: 01/28/24 13:17 Source: patient Mode of arrival: ambulatory Limitations: no limitations History of Present Illness: Patient is a 38-year-old female presents to ED today with complaint of lower abdominal/pelvic cramping along with bilateral lower back pain. Patient states her symptoms initially began 3 days ago. She was seen at a walk-in clinic through [facility] and recommended to go to the emergency department. Patient states she was seen at [facility]. She had blood work, UA, and CT abdomen/pelvis imaging obtained. She had blood work and UA were unremarkable. Her CT abdomen/pelvis showed possible mild enteritis/ileus as well as a possible 4 cm left ovarian cyst. She was recommended to have an outpatient ultrasound performed. Patient states she has a history of a hysterectomy with right oophorectomy. She states she has not had any vomiting. She is passing normal stool and flatulence. She does feel like it is somewhat difficult to start her urinary stream however she does not complain of dysuria, frequency, urgency, or hematuria. Has not had any vaginal odor/discharge. They did remove her cervix during her hysterectomy. She has not been running fevers. She has no flank pain. She states that she does not have any midline back pain but that most of her discomfort is on both sides across her lower back. She has no radicular pain into legs. MD elicited complaint: abdominal pain Pertinent past history: none Onset (ago): day(s) Pain Consistency: constant Location: RLQ, LLQ and Suprapubic Severity: severe Radiation: back Migration to: no migration Exacerbating factors: nothing Relieving factors: nothing Associated Symptoms: Reports nausea; Denies chills, diarrhea, dysuria, fever(s), heartburn, syncope and vomiting Related Data: Patient : No Review of Systems Const: Denies: fever(s), chills, body aches, fatigue or malaise Eyes: Denies: change in vision or blurry vision Card: Denies: chest pain, palpitations, irregular heart rhythm, lightheadedness, syncope or dyspnea on exertion Resp: Denies: dyspnea, productive cough or pain on inspiration GI: Reports: nausea; Denies: abdominal pain, vomiting, heartburn or diarrhea : Reports: difficulty voiding and pelvic pain; Denies: flank pain, dysuria, urinary frequency, urinary urgency, urinary hesitancy, dribbling, vaginal odor, vaginal bleeding or vaginal discharge Musc: Denies: neck pain, back pain, extremity pain, extremity swelling or joint pain Skin/Breast: Denies: rash Neuro: Denies: headache(s), numbness in extremities, weakness in extremities, sensory changes or dizziness PFSH ED PFSH: Medical History Obesity (BMI 30-39.9) Allergic rhinitis due to allergen Sebaceous cyst of axilla Salivary duct calculi Ovarian cyst Urinary tract infection Hx of migraines Chronic migraine Surgical History History of ovarian cystectomy Hx of cholecystectomy Hx of tubal ligation Family History Other Cancer Denies family history of Diabetes Dementia Hypertension Stroke Social History Smoking and tobacco/nicotine status: current every day tobacco/nicotine user cigarettes Packs smoked per day: 0.5 Quit status (tobacco/nicotine): considering quitting Second hand smoke exposure: Yes Alcohol intake: never Substance/Drug Use: unknown Adopted: No Caregiver/support person: No Lives independently: Yes Household members: children Housing: House Marital status: service: No Do you think of yourself as: Straight/Heterosexual Current gender identity: Female Physical Exam Const: COMMON NORMALS: average body habitus, patient oriented x3, no limitations, healthy appearing, alert and well nourished GENERAL APPEARANCE: cooperative and in distress (appears uncomfortable secondary to pain) ORIENTATION/CONSCIOUSNESS: Yes awake, Yes oriented to person, Yes oriented to place and Yes oriented to time HENMT: COMMON NORMALS: normocephalic and atraumatic HEAD & SCALP: normal to inspection, normocephalic and atraumatic Eye: COMMON NORMALS: no scleral icterus Resp: COMMON NORMALS: normal respiratory effort and clear to auscultation bilaterally AUSCULTATION: clear to auscultation bilaterally Cardio: COMMON NORMALS: regular rate and regular rhythm RATE: regular rate RHYTHM: regular rhythm GI: COMMON NORMALS: Normal to inspection, nondistended, normoactive bowel sounds present, Soft to palpation, No hepatosplenomegaly present and no masses INSPECTION: Yes normal to inspection AUSCULTATION: Yes normoactive bowel sounds PALPATION: Yes Soft to palpation, Yes Tenderness to palpation present (GI) (throughout lower abdomen ), Yes Guarding due to palpation present (GI), No Rigid due to palpation and Yes No hepatosplenomegaly present : COMMON NORMALS: Yes no CVA tenderness BLADDER/KIDNEY EXAM: Yes no CVA tenderness Back/Pelvis: COMMON NORMALS: no CVA tenderness and thoracic and lumbar spine normal to inspection LUMBAR SPINE/LOWER BACK: No lumbar spinal tenderness, Yes paraspinal muscle tenderness, No paraspinal muscle spasm, No mass present and Yes straight leg raise negative bilaterally PELVIS: Yes buttocks normal and No sciatic notch tenderness SACROILIAC JOINTS: Yes SI joints normal SACRUM: no tenderness COCCYX: no tenderness Extremity: COMMON NORMALS: normal to inspection GENERAL: Yes normal exam except as noted Neuro: RICHARD COMA SCALE: document GCS findings Richard coma scale eye opening: Spontaneous [place] coma scale verbal response: Orientated Richard coma scale motor response: Obey commands Richard coma scale total score: 15 COMMON NORMALS: patient oriented x3, moves all extremities, no focal motor deficits and no sensory deficits noted SENSORIUM/ORIENTATION: Yes alert, Yes oriented to person, Yes oriented to place and Yes oriented to time Skin: COMMON NORMALS: no rashes or lesions noted GENERAL SKIN EXAM: no rashes or lesions noted Course Vital Signs: Vital signs: Vital Signs Temperature 98.1 F 01/28/24 13:06 Pulse Rate 63 01/28/24 14:44 Respiratory Rate 16 01/28/24 14:44 Blood Pressure 128/97 01/28/24 14:44 Pulse Oximetry 96 01/28/24 14:44 Oxygen Delivery Me thod Room Air 01/28/24 14:44 MDM - Abdominal Pain Medical Decision Making Patient feeling somewhat better after medications given here. I was able to review patient's previous CT scan at [facility] on her patient portal on her phone. It did shows possibility of mild enteritis/ileus as well likely a [address] ovarian [address]. [address] scan here is essentially unremarkable. They did comment on a multi follicular left ovary. Ultrasound of the ovary showing no large left ovarian cyst. She had normal vascularity. Her vital signs are unremarkable. Her blood work is nonactionable. Her UA is clear. She has no midline back pain. No fevers. No acute neurologic deficits. At this time etiology is unclear. She does not wish hospitalization as she has children at home to care for. Discussed treatment at home with return precautions which patient is agreeable to. Medical Records I reviewed the patient's medical records. Lab Data I reviewed the patient's lab results. 01/28/24 13:33 01/28/24 13:33 Labs/Radiology: Radiology Impressions Abdomen/Pelvis CT 01/28/24 13:27 IMPRESSION: 1. Normal appendix in the RIGHT lower quadrant. No evidence of acute appendicitis. 2. Multi follicular LEFT ovary. No surrounding fluid or edema. Ultrasound is pending. 3. History of prior hysterectomy and RIGHT oophorectomy. 4. Diffuse fatty infiltration of the liver. 5. Prior cholecystectomy. 6. Distended stomach with air-fluid level and food/fluid products 7. No free fluid in the abdomen or pelvis. Transvaginal US 01/28/24 13:27 IMPRESSION: 1. Prior hysterectomy and RIGHT oophorectomy. 2. Multi follicular LEFT ovary measures 4.1 x 2.3 x 3.2 cm. No visualized large LEFT ovarian cyst. 3. Normal vascularity to the LEFT ovary. Laboratory Results WBC 5.63 10^3/uL (3.29-11.43) 01/28/24 13:33 RBC 4.16 10^6/uL (3.85-5.65) 01/28/24 13:33 Hgb 12.60 g/dL (11.27-16.99) 01/28/24 13:33 Hct 38.4 % (36-47) 01/28/24 13:33 MCV 92.3 fl (85-98) 01/28/24 13:33 MCH 30.3 pg (27-33) 01/28/24 13:33 MCHC 32.8 g/dL (30-55) 01/28/24 13:33 RDW 12.6 % (12.1-15.1) 01/28/24 13:33 Plt Count 207 10^3/cmm (157-399) 01/28/24 13:33 MPV 10.3 fL (7.4-10.4) 01/28/24 13:33 Neut % (Auto) 49.5 % 01/28/24 13:33 Lymph % (Auto) 39.8 % 01/28/24 13:33 Sabine % (Auto) 6.9 % 01/28/24 13:33 Eos % (Auto) 2.7 % 01/28/24 13:33 Baso % (Auto) 0.7 % 01/28/24 13:33 Neut # (Auto) 2.79 10^3/uL (1.8-7.7) 01/28/24 13:33 Lymph # (Auto) 2.2 10^3/uL (0.8-4.8) 01/28/24 13:33 Sabine # (Auto) 0.4 10^3/uL (0.2-0.9) 01/28/24 13:33 Eos # (Auto) 0.2 10^3/uL (0.0-0.8) 01/28/24 13:33 Baso # (Auto) 0.0 10^3/uL (0.0-0.1) 01/28/24 13:33 Nucleated RBC % (auto) 0 % 01/28/24 13:33 Nucleated RBCs # 0.0 /100WBC 01/28/24 13:33 Sodium 136 mmol/L (136-145) 01/28/24 13:33 Potassium 4.0 mmol/L (3.5-5.1) 01/28/24 13:33 Chloride 100 mmol/L (98-107) 01/28/24 13:33 Carbon Dioxide 27 mmol/L (22-29) 01/28/24 13:33 Anion Gap 13.0 (5-19) 01/28/24 13:33 BUN 9 mg/dL (6-20) 01/28/24 13:33 Creatinine 0.7 mg/dL (0.5-0.9) 01/28/24 13:33 GFR Calculation 93.6 mL/min (90-130) 01/28/24 13:33 Glucose 94 mg/dL (65-115) 01/28/24 13:33 Calculated Osmolality 280 mOsm/kg (285-295) L 01/28/24 13:33 Calcium 9.4 mg/dL (8.5-10.5) 01/28/24 13:33 Total Bilirubin 0.3 mg/dL (0.15-1.2) 01/28/24 13:33 AST 14 U/L (0-32) 01/28/24 13:33 ALT 14 U/L (0-33) 01/28/24 13:33 Alkaline Phosphatase 68 U/L (35-105) 01/28/24 13:33 Total Protein 7.0 g/dL (6.6-8.7) 01/28/24 13:33 Albumin 4.1 g/dL (3.5-5.2) 01/28/24 13:33 Globulin 2.9 g/dL (1.3-4.6) 01/28/24 13:33 Lipase 20 U/L (13-60) 01/28/24 13:33 Urine Color Dark yellow (Yellow) 01/28/24 13:35 Urine Appearance Clear (CLEAR) 01/28/24 13:35 Urine pH 7 (5-7) 01/28/24 13:35 Ur Specific Horner 1.010 (1.005-1.030) 01/28/24 13:35 Urine Protein Neg (Negative) 01/28/24 13:35 Urine Glucose (UA) Norm (Normal) 01/28/24 13:35 Urine Ketones Negative (Negative) 01/28/24 13:35 Urine Blood Neg (Negative) 01/28/24 13:35 Urine Nitrate Negative (Negative) 01/28/24 13:35 Urine Bilirubin Neg (Negative) 01/28/24 13:35 Urine Urobilinogen Norm mg/dL (Negative) 01/28/24 13:35 Ur Leukocyte Esterase Negative (Negative) 01/28/24 13:35 All radiology interpretation(s) finalized by discharge Discharge Plan Discharge Patient Disposition: Home Clinical Impression: Abdominal pain of unknown cause Low back pain Qualifiers: Chronicity: acute Back pain laterality: bilateral Sciatica presence: without sciatica Qualified Code(s): M54.50 - Low back pain, unspecified Condition: Stable Prescriptions: New methocarbamol 500 mg tablet 1,000 mg PO Q8H Qty: 30 0RF prednisone 10 mg tablet 10 mg PO DAILY 6 Days Qty: 20 0RF Rx Instructions: Take 5 tabs on day 1-2, 4 tabs on day 3, 3 tabs on day 4, 2 tabs on day 5, and 1 tab on day 6 ibuprofen 800 mg tablet 800 mg PO Q8H PRN (Reason: pain) Qty: 20 0RF hydrocodone-acetaminophen 5-325 mg tablet 1 tab PO Q6H PRN (Reason: pain) Qty: 14 0RF Discontinued tizanidine 4 mg capsule 4 mg PO .qhs Qty: 30 3RF hydrocodone-acetaminophen 5-325 mg tablet 1 tab PO Q6H PRN (Reason: pain) 5 Days Qty: 20 0RF phentermine [Adipex-P] 37.5 mg tablet 37.5 mg PO DAILY Qty: 30 0RF Rx Instructions: must administer 30 minutes before or 1-2 hours after breakfast methylprednisolone [Medrol (Irving)] 4 mg tablets,dose pack See Rx Instructions PO PER PKG DIR Qty: 21 0RF Rx Instructions: PO PER PKG DIR No Action duloxetine 60 mg capsule,delayed release(DR/EC) 60 mg PO DAILY Qty: 30 5RF benzonatate 100 mg capsule 100 mg PO TID PRN (Reason: cough) Qty: 30 1RF fluconazole 150 mg tablet 150 mg PO DAILY 3 Days Qty: 3 2RF hydrochlorothiazide 12.5 mg tablet 12.5 mg PO DAILY (DME) pen needle, diabetic 33 gauge x 5/32 needle See Rx Instructions .ROUTE .MEDSUPPLY Qty: 100 5RF Rx Instructions: 1 time day propranolol 20 mg tablet 20 mg PO .qhs Qty: 30 2RF sumatriptan succinate [Imitrex] 100 mg tablet See Rx Instructions PO .COMPLEX Qty: 14 0RF Rx Instructions: take 1 tab at onset of headache; if no relief, may repeat 1 tab after at least 2 hrs; max = 2 tabs/24 hrs PO Nurtec ODT 75 mg tablet,disintegrating 75 mg PO ONCE PRN (Reason: migraine headache) Qty: 8 3RF nortriptyline 75 mg capsule 75 mg PO DAILY Qty: 30 3RF neomycin-polymyxin B-dexameth [Maxitrol] 3.5mg/mL-10,000 unit/mL-0.1 % drops,suspension 2 drp ophthalmic (eye) Q2H 7 Days Qty: 5 0RF Discharge Orders: Discharge ED (Routine); Ordered 01/28/24 Ordered By: Estefania Mittal Referrals: Dina Muniz MD [Primary Care Provider] - Patient Instructions: Acute Low Back Pain (ED), Abdominal Pain (ED), Opioid Safety, Pain Management Activity Restrictions/Additional Instructions: As we discussed your ED workup today was unrevealing in the etiology for your discomfort. Your blood work is reassuring. Your urine analysis does not show any evidence for infection. Your CT scan was essentially unremarkable. At this time I would like you to keep a close eye on symptoms at home. You need to return to the emergency department for worsening or intractable back or abdominal pain, fevers, generally feeling worse or unwell, or any other concerns you may have. Otherwise I would like you to follow-up with your primary care next week. Coding Level of Care Code ED Map Mounter for Kaylee Cotaes
[2024-01-28 13:47] LABS: Basophils % 0.7 %; Eosinophils # 0.2 10^3/uL (0.0-0.8); Eosinophils % 2.7 %; Hematocrit 38.4 % (36-47); Lymphocytes # 2.2 10^3/uL (0.8-4.8); Lymphocytes % 39.8 %; Mean Corpuscular HGB Conc 32.8 g/dL (30-55); Mean Corpuscular Hemoglobin 30.3 pg (27-33); Mean Corpuscular Volume 92.3 fl (85-98); Mean Platelet Volume 10.3 fL (7.4-10.4); Monocytes # 0.4 10^3/uL (0.2-0.9); Monocytes % 6.9 %; Neutrophils # 2.79 10^3/uL (1.8-7.7); Neutrophils % 49.5 %; Nucleated Red Blood Cells % 0 %; Platelet Count 207 10^3/cmm (157-399); Red Blood Count 4.16 10^6/uL (3.85-5.65); Red Cell Distribution Width 12.6 % (12.1-15.1); White Blood Count 5.63 10^3/uL (3.29-11.43)
[2024-01-28 13:49] LABS: Add Urine Microscopic? NO; Charge for UA Resulting for Rev
[2024-01-28] MEDS: iohexol 350 mg/mL 500 mL Btl (per mL) IV (13:57)
[2024-01-28 14:02] VITALS: BP 129/88; PULSE 84; O2SAT 98
[2024-01-28 14:02] LABS: Bilirubin Urine Neg (Negative); Blood Urine Neg (Negative); Glucose Urine UA Norm (Normal); Ketones Urine Negative (Negative); Leukocyte Esterase Urine Negative (Negative); Nitrate Urine Negative (Negative); Protein Urine Neg (Negative); Urine Appearance Clear (CLEAR); Urine Color Dark Yellow (Yellow); Urobilinogen Urine Norm (Negative); pH Urine 7 (5-7)
[2024-01-28 14:12] LABS: Alanine Aminotransferase 14 U/L (0-33); Albumin Level 4.1 g/dL (3.5-5.2); Alkaline Phosphatase 68 U/L (35-105); Aspartate Amino Transferase 14 U/L (0-32); Blood Urea Nitrogen 9 mg/dL (6-20); Calcium 9.4 mg/dL (8.5-10.5); Carbon Dioxide 27 mmol/L (22-29); Chloride 100 mmol/L (98-107); Globulin 2.9 g/dL (1.3-4.6); Glomerular Filtration Rate 93.6 mL/min (90-130); Glucose 94 mg/dL (65-115); Lipase 20 U/L (13-60); Osmolality Calculated 280 mOsm/kg (285-295); Sodium 136 mmol/L (136-145); Total Bilirubin 0.3 mg/dL (0.15-1.2)
[2024-01-28] MEDS: ondansetron 2 mg/ML SDV 2 mL 4 MG IVP (14:13)
[2024-01-28 14:14] VITALS: RESP 16
[2024-01-28] MEDS: morphine 4 mg/mL SDV 1 mL IVP (14:14)
[2024-01-28 14:17] VITALS: BP 108/80; PULSE 78; RESP 16; O2SAT 98
[2024-01-28] MEDS: dexamethasone 10 mg/mL INJ 8 MG IVP (14:39)
[2024-01-28] MEDS: ketorolac 60 mg/2 mL INJ 30 MG IVP (14:41)
[2024-01-28 14:44] VITALS: BP 128/97; PULSE 63; RESP 16; O2SAT 96
[2024-01-28] MEDS: orphenadrine 30 mg/mL Inj 2 mL 60 MG IVP (14:44)
[2024-01-28 16:07] VITALS: BP 120/70; PULSE 66; RESP 16; O2SAT 97
== END 2024-01-28 16:11 | disposition home or self-care (01) ==
PROVIDERS: Emergency Provider Physician Assistant; PCP Family Medicine
DX: M54.50 Low back pain, unspecified (principal); R10.30 Lower abdominal pain, unspecified; F17.210 Nicotine dependence, cigarettes, uncomplicated
CPT/HCPCS: 74177; 76830; 80053; 81003; 83690; 85025; 96374; 96375; 99285; J1100; J1885; J2270; J2360; J2405; Q9967

== ENCOUNTER → 2024-01-31 16:19 | Outpatient (BNVA) | payer BC, MEDICAID, SELFPAY | PROVIDERS: PCP Family Medicine; Visit Provider Family Medicine | DX: R30.0 Dysuria (principal) | CPT/HCPCS: 81003 ==

== ENCOUNTER 2024-02-28 22:58 | Emergency (ER) | payer BC, MEDICAID, SELFPAY ==
--- NOTE | 2024-02-29 01:20 | ED_ITS ---
HPI - Neck Pain/Injury General: Chief Complaint: Neck Pain/Injury Stated Complaint: neck pain cant turn cant use arm Time Seen by Provider: 02/29/24 01:10 Source: patient Mode of arrival: ambulatory Limitations: no limitations History of Present Illness: 30-year-old female with a history of chr onic neck and back pain she has been having worsening neck pain states has been going on for months but has much worse pain over the last few days. States it radiates her arms has pain with any movement of her arms. Denies any weakness. Denies any injuries rates her pain a 10 out of 10 currently Associated symptoms: Denies headache(s) or nausea Review of Systems Const: Denies: fever(s), chills, body aches or change in appetite ENMT: Denies: throat pain or dental pain Card: Denies: chest pain Resp: Denies: dyspnea GI: Denies: abdominal pain, nausea, vomiting or diarrhea Musc: Reports: neck pain; Denies: back pain Skin/Breast: Denies: rash Neuro: Denies: headache(s) PFSH ED PFSH: Medical History Obesity (BMI 30-39.9) Allergic rhinitis due to allergen Sebaceous cyst of axilla Salivary duct calculi Ovarian cyst Urinary tract infection Hx of migraines Chronic migraine Surgical History History of ovarian cystectomy Hx of cholecystectomy Hx of tubal ligation Family History Other Cancer Denies family history of Diabetes Dementia Hypertension Stroke Social History Smoking and tobacco/nicotine status: current every day tobacco/nicotine user cigarettes Packs smoked per day: 0.5 Quit status (tobacco/nicotine): considering quitting Second hand smoke exposure: Yes Alcohol intake: never Substance/Drug Use: unknown Adopted: No Caregiver/support person: No Lives independently: Yes Household members: children Housing: House Marital status: service: No Do you think of yourself as: Straight/Heterosexual Current gender identity: Female Physical Exam Const: COMMON NORMALS: no acute distress, patient oriented x3 and healthy appearing HENMT: COMMON NORMALS: normocephalic and atraumatic HEAD & SCALP: normocephalic and atraumatic Eye: COMMON NORMALS: conjunctivae normal CONJUNCTIVA: Yes conjunctivae normal Neck/C-Spine: COMMON NORMALS: full ROM and supple OTHER: Paraspinal tenderness along C-spine and upper T-spine Chest: COMMONS NORMALS: normal inspection of the chest Resp: COMMON NORMALS: normal respiratory effort Cardio: COMMON NORMALS: regular rate RATE: regular rate Extremity: COMMON NORMALS: normal to inspection and full ROM NARRATIVE EXTREMITY EXAM: Normal sensation and strength in bilateral arms does have pain with movement Neuro: COMMON NORMALS: patient oriented x3, moves all extremities and no focal motor deficits Psych: COMMON NORMALS: mental status grossly normal, Normal thought process present and cooperative THOUGHT PROCESS: Normal thought process present Skin: COMMON NORMALS: no rashes or lesions noted and no wounds GENERAL SKIN EXAM: no rashes or lesions noted MDM - Neck Pain/Injury Medical Decision Making Patient presents with neck pain that is chronic in nature she has no signs of any acute injuries no signs of cord compression or epidural abscess did give her pain medicine muscle accidents here and will prescribe her some for home she is to follow-up with her orthopedist Dr. Christina return if worsening she understands agrees with plan Medical Records I reviewed the patient's medical records. No radiology studies performed this visit Discharge Plan Discharge Patient Disposition: Home Clinical Impression: Chronic neck pain Condition: Stable Prescriptions: New hydrocodone-acetaminophen 5-325 mg tablet 1 tab PO Q6H PRN (Reason: pain) Qty: 14 0RF methocarbamol 750 mg tablet 750 mg PO Q6H PRN (Reason: spasms) Qty: 20 0RF No Action duloxetine 60 mg capsule,delayed release(DR/EC) 60 mg PO DAILY Qty: 30 5RF benzonatate 100 mg capsule 100 mg PO TID PRN (Reason: cough) Qty: 30 1RF fluconazole 150 mg tablet 150 mg PO DAILY 3 Days Qty: 3 2RF phenazopyridine [Pyridium] 100 mg tablet 100 mg PO TID Qty: 20 0RF nitrofurantoin monohyd/m-cryst [Macrobid] 100 mg capsule 100 mg PO BID Qty: 20 0RF Rx Instructions: must administer with a meal/food hydrochlorothiazide 12.5 mg tablet 12.5 mg PO DAILY (DME) pen needle, diabetic 33 gauge x 5/32 needle See Rx Instructions .ROUTE .MEDSUPPLY Qty: 100 5RF Rx Instructions: 1 time day propranolol 20 mg tablet 20 mg PO .qhs Qty: 30 2RF sumatriptan succinate [Imitrex] 100 mg tablet See Rx Instructions PO .COMPLEX Qty: 14 0RF Rx Instructions: take 1 tab at onset of headache; if no relief, may repeat 1 tab after at least 2 hrs; max = 2 tabs/24 hrs PO Nurtec ODT 75 mg tablet,disintegrating 75 mg PO ONCE PRN (Reason: migraine headache) Qty: 8 3RF nortriptyline 75 mg capsule 75 mg PO DAILY Qty: 30 3RF neomycin-polymyxin B-dexameth [Maxitrol] 3.5mg/mL-10,000 unit/mL-0.1 % drops,suspension 2 drp ophthalmic (eye) Q2H 7 Days Qty: 5 0RF hyoscyamine sulfate 0.125 mg tablet 0.125 mg PO QID 5 Days Qty: 20 0RF methocarbamol 500 mg tablet 1,000 mg PO Q8H Qty: 30 0RF ibuprofen 800 mg tablet 800 mg PO Q8H PRN (Reason: pain) Qty: 20 0RF hydrocodone-acetaminophen 5-325 mg tablet 1 tab PO Q6H PRN (Reason: pain) Qty: 14 0RF Discharge Orders: Discharge ED (Routine); Ordered 02/29/24 Ordered By: Jose Mulligan Referrals: Dina Muniz MD [Primary Care Provider] - Discharge Diet: Advance as tolerated Discharge Activity: Resume usual activity Patient Instructions: Neck Pain (ED), Opioid Safety, Pain Management Coding Level of Care Code ED Superintendent Warehouse for Kaylee Coates
[2024-02-29] MEDS: dexamethasone 10 mg/mL INJ IM (01:45)
[2024-02-29] MEDS: methocarbamol 750 mg Tablet 1500 MG PO (01:45)
[2024-02-29 01:46] VITALS: RESP 18
[2024-02-29] MEDS: morphine 4 mg/mL SDV 1 mL IM (01:46)
[2024-02-29 02:13] VITALS: PULSE 70; RESP 16; O2SAT 97
[2024-02-29 02:15] VITALS: PULSE 70; RESP 16; O2SAT 97
== END 2024-02-29 02:08 | disposition home or self-care (01) ==
PROVIDERS: Emergency Provider Emergency Medicine; PCP Family Medicine
DX: G89.29 Other chronic pain (principal); M54.2 Cervicalgia; F17.210 Nicotine dependence, cigarettes, uncomplicated
CPT/HCPCS: 96372; 99284; J1100; J2270

== ENCOUNTER → 2024-03-07 08:27 | Outpatient (BNVA) | payer BC, MEDICAID, SELFPAY | PROVIDERS: PCP Family Medicine; Visit Provider Orthopaedic Surgery | DX: M54.2 Cervicalgia (principal); G89.29 Other chronic pain | CPT/HCPCS: 72050 ==

== ENCOUNTER 2024-03-22 08:45 | Outpatient (CLI) | payer BC, MEDICAID, SELFPAY ==
--- NOTE | 2024-03-22 08:45 | MR_ITS ---
WS: [id number] MR CERVICAL SPINE WO/W COMPARISON: MRI 04/21/2023 HISTORY: Neck Pain TECHNIQUE: Sagittal T1, T2 and T2 inversion recovery; axial T2, T2 gradient and fiesta. Post gadolini um imaging with fat saturation technique. FINDINGS:Straightening with slight reversal of the normal cervical lordosis slightly progressed. No h igh grade central canal narrowing. Cord signal is normal. No abnormal gadolinium enhancement. C2-3: Normal C3-4: Mild facet arthropathy. Spinal canal and foramen are patent. C4-5: Minimal disc bulging. Mild facet arthropathy. Spinal canal and foramina are patent. C5-6: No significant disc bulging. Mild facet arthropathy. Spinal canal and foramen are patent. C6-7: No significant disc bulging. Mild facet arthropathy. Spinal canal and foramen are patent. C7-T1: Disc osteophytic ridging with mild LEFT and no significant RIGHT foraminal narrowing. Mild fac et arthropathy MR/MR cervical spine wo/w [id number] IMPRESSION: 1. Straightening with slight reversal the normal cervical lordosis slightly pr ogressed compared to previous. 2. Cord signal is normal. No abnormal gadolinium enhancement. 3. Minimal disc bulging C3-C4 C4-C5 and C5-C6 without significant spinal canal or foraminal narrowing. 4. Mild LEFT C7-T1 bony foraminal narrowing similar to previous. 5. Mild facet arthropathy C3-C4 C4-C5 C5-C6.
[2024-03-22] MEDS: gadobenate dimeglumine 20 mL vial 19 ML IV (09:33)
== END 2024-03-22 08:53 | disposition home or self-care (01) ==
PROVIDERS: PCP Family Medicine; Visit Provider Orthopaedic Surgery
DX: M54.2 Cervicalgia (principal); M47.812 Spondylosis without myelopathy or radiculopathy, cervical region; M25.78 Osteophyte, vertebrae; M47.813 Spondylosis without myelopathy or radiculopathy, cervicothoracic region
CPT/HCPCS: 72156; A9577

== ENCOUNTER → 2024-03-30 16:48 | Outpatient (BNVA) | payer BC, MEDICAID, SELFPAY | PROVIDERS: PCP Family Medicine; Visit Provider Family Medicine | DX: R53.83 Other fatigue (principal); L65.9 Nonscarring hair loss, unspecified | CPT/HCPCS: 80053; 82306; 82607; 83540; 84443; 85025 ==

== ENCOUNTER 2024-05-10 14:08 | Outpatient (CLI) | payer BC, MEDICAID, SELFPAY ==
--- NOTE | 2024-05-10 14:00 | MM_ITS ---
WS: [id number] BILATERAL 3D TOMOSYNTHESIS DIGITAL SCREENING MAMMOGRAPHY WITH CAD CLINICAL INFORMATION: Z12.39 - Encounter for other screening for malignant neop... HISTORY: Screening mammogram. No current complaints. COMPARISON: 2021 TECHNIQUE: Bilateral CC and MLO views. FINDINGS: Scattered fibroglandular densities bilaterally. No suspicious focal mass, asymmetry, calcifications, or architectural distortion. No evidence of malignancy. MM/[place] [id number] IMPRESSION: DENSITY: There are scattered areas of fibroglandular density. BI-RADS: 1 - Negative. FOLLOW UP: 1 Year Follow-up Recommend return to annual screening mammography.
== END 2024-05-10 14:09 | disposition home or self-care (01) ==
LOC: RAD 14:09
PROVIDERS: PCP Family Medicine; Visit Provider Family Medicine
DX: Z12.31 Encounter for screening mammogram for malignant neoplasm of breast (principal)
CPT/HCPCS: 77063; 77067

== ENCOUNTER → 2024-10-09 15:25 | Outpatient (BNVA) | payer OTHER, MEDICAID, SELFPAY | PROVIDERS: Visit Provider Nurse Practitioner Family | DX: R39.9 Unspecified symptoms and signs involving the genitourinary system (principal) | CPT/HCPCS: 81000 ==

== ENCOUNTER 2024-10-24 16:45 | Outpatient (CLI) | payer OTHER, MEDICAID, SELFPAY | END 2024-10-24 16:46 | disposition home or self-care (01) | LOC: SLEEP 16:47 | PROVIDERS: Visit Provider Anesthesiology Pain Medicine | DX: G47.33 Obstructive sleep apnea (adult) (pediatric) (principal) | CPT/HCPCS: G0399 ==

== ENCOUNTER 2025-05-17 10:24 | Emergency (ER) | payer OTHER, MEDICAID, SELFPAY ==
--- OUTSIDE RECORDS SUMMARY | 2024-06-24 04:00 | XMS_ITS ---
Author Organization [facility] Address [address] [place] [address] Support Name Relationship Address , Kelin Peralta Emergency Contact Unknown Unavailable Irena Albert Guarantor Unknown Unavailable Care Team Providers Care Global Transportation Manager Name Role Phone David Brian Primary Care Provider Unavailabl e Migration, Provider Unavailable Unavailable REASON FOR VISIT EMR-Ian Encounters Encounter Location Date Provider Diagnosis Migrated_Facility 0 0 06/24/2024 Provider Migration Plan Of Treatment Medication Medication Name Sig Start Date Stop Date Notes HYDROcodone-Acetaminop hen 7.5-325 MG Oral Tablet 1 Tablet every 8 hours PRN 07/07/2023 07/14/2023 *Reorder from [facility] an for eRx and Interaction Alerts* HYDROcodone-Acetaminop hen 5-325 MG Oral Tablet 1 Tablet Every 12 hours PRN 09/16/2022 10/16/2022 *Reorder from [facility] an for eRx and Interaction Alerts* tiZANidine HCl 4 MG Tablet 1 Tablet every 12 hours PRN Oral 07/07/2023 07/12/2023 Progress Notes * Irena ALBERTDOB:1985 ( 39 yo F)Acc No.[id number]:06/24/2024 Patient: Irena GILL :1985 A ge:38 Y S ex:Female Phone: Address:[address], [place], [address] * Refills Stop tiZANidine HCl Tablet, 4 MG, Oral, 1 Tablet every 12 hours PRN Stop HYDROcodone-Acetaminophen 7.5-325 MG Oral Tablet, 1 Tablet every 8 hours PRN Stop HYDROcodone-Acetaminophen 5-325 MG Oral Tablet, 1 Tablet Every 12 hours PRN Subjective: * Chief Complaints: * E MR-Ian * * Date:
--- OUTSIDE RECORDS SUMMARY | 2024-06-25 04:00 | XMS_ITS ---
Author Organization [facility] Address [address] [place] [address] Support Name Relationship Address , Kelin Fabian Emergency Contact Unknown Unavailable Irena Albert Guarantor Unknown Unavailable Care Team Providers Care Controller [place] Name Role Phone Isidralorene David Primary Care Provider Unavailabl e Migration, Provider Unavailable Unavailable REASON FOR VISIT [facility] Medications Medication SIG (Take, Route, Frequency, Duration) [...] * Irena ALBERTDOB:1985 ( 39 yo F)Acc No.[id number]:06/25/2024 Patient: Irena GILL :1985 A ge:38 Y S ex:Female Phone: Address: [address], [place], [place], [address] Subjective: * Chief Complaints: * E MR-Ian [...]
--- OUTSIDE RECORDS SUMMARY | 2025-05-09 15:17 | XMS_ITS | Encounter Summary ---
Author Organization [facility] Address [address] [place] [address] Care Team Providers Care Environmental Health And Safety Leader Name Role Phone Jhony Terry MD Primary Care Provider [phone] Reason for Visit * Reason Comments Neck Pain left Encounter Details Date Type Department Care Team (Late st Contact Info) Description 05/09/2025 3:17 PM CDT - 05/09/2025 7:14 PM CDT Emergency [facility] [address] [place] [address] Cervicalgia (Primary Dx) Discharge Disposition: Home or Self Care Social History Tobacco Use Types Packs/Day Years Used Date Smoking Tobacco: Former Cigarettes Smokeless Tobacco: Never Tobacco Cessation:Counseling Given: Not Answered Comments:I quit for 3 years and started again about 2 years ago. Alcohol Use Standard Drinks/Week Comments No 0 (1 standard drink = 0.6 oz pur e alcohol) Feeling Safe Answer Date Recorded Are you in a relationship wi th someone who hurts you emotionally and/or physically? No 05/09/2025 Comments No Sex and Gender Information Value Date Recorded Sex Assigned at Not on file Legal Sex Female 8:18 AM NUT CHOPPER Gender Identity Not on file Sexual Orientation Not on file documented as of this encounter Last Filed Vital Signs Vital Sign Reading Time Taken Comments Blood Pressure 106/67 05/09/2025 6:45 PM CDT Pulse 57 05/09/2025 6:45 PM CDT Temperature 36.9 C (98.4 F) 05/09/2025 3:21 PM CDT Respiratory Rate 20 05/09/2025 6:45 PM CDT Oxygen Saturation 100% 05/09/2025 6:45 PM CDT Inhaled Oxygen Concentration - - Weight 89.1 kg (196 lb 6.4 oz) 05/09/2025 3:21 P M CDT Height 162.6 cm (5' 4 ) 05/09/2025 3:21 PM CDT Body Mass Index 33.71 05/09/2025 3:21 PM CDT documented in this encounter Discharge Instructions * Discharge Instructions* Essence Dawn APRN - 05/09/2025 7:08 PM CDT - return here for new or worsening symptoms - follow up with PCP for further imaging of your neck and back * Attachments The following attachments cannot be sent through Care Everywhere. * Cervical Pain ([place]) * Back Pain ([place]) documented in this encounter Medications at Time of Discharge HYDROcodone-acetam inophen (NORCO) 10-325 mg Tablet Take 1 Tablet by mouth every 4 hours as needed for Pain, Moderate. amphetamine-dextro amphetamine (ADDERALL XR) 20 mg Extended Release 24 hour capsule Take 20 mg by mouth daily in the morning. HYDROcodone-acetam inophen (NORCO) 7.5-325 mg Tablet Take 1 Tablet by mouth every 6 hours as needed for Pain, Moderate. methocarbamoL (ROBAXIN) 100 mg/mL Solution Q6H 02/29/2024 ibuprofen (MOTRIN) 400 mg tablet Take 800 mg by mouth every 6 hours as needed for Pain, Mild. HYDROcodone-acetam inophen (NORCO) 5-325 mg tabletIndications: Acute exacerbation of chronic low back pain Take 1 Tablet by mouth every 4 hours as needed for Pain, Break-Through . Max Daily Amount: 6 Tablets 18 Tablet 01/25/2024 DULoxetine (CYMBALTA) 60 mg Capsule, Delayed Release(E.C.) Take 60 mg by mouth daily. documented as of this encounter ED Notes * Connie Bentley RN - 05/09/2025 6:09 PM CDT Back to room * Connie Bentley RN - 05/09/2025 6:00 PM CDT Patient transported via wheelchair. Patient transported to radiology with Tech. * Connie Bentley RN - 05/09/2025 5:59 PM CDT Radiology notified of orders * Connie Bentley RN - 05/09/2025 4:34 PM CDT Kalin ESTRADA notified that patient's pain to the neck is not better. Rates pain a 05/09. States that she is sleepy though * Connie Bentley RN - 05/09/2025 4:03 PM CDT Patient transported via wheelchair. Patient transported to radiology with Tech. * Connie Bentley RN - 05/09/2025 3:52 PM CDT Radiology notified of orders * Connie Bentley RN - 05/09/2025 3:21 PM CDT Patient arrives by private vehicle. Ambulates slowly into room stiffly and not turning head with movement. has a truck driver helper. Complains of left sided neck pain that radiates down into her left shoulder blade. States at times she hurts in her chest and neck with breathing. has had problems with muscle spasms and problems with her neck in the for awhile now but has been worse the past 2 weeks. States she went to the chiropractor last Wednesday 8 days ago. States the pain and muscle spasms became worse after the chiropractor. States last night she could not get out of bed and had to have help just raising up out of bed. States today her left arm feels tingling and numb. States she is not able to take her muscle relaxer except at night due to making her tired and last took it around 2130 last night. States she took her hydrocodone at 1100 today. States she has a pain doctor in [place]. documented in this encounter Plan of Treatment Not on file documented as of this encounter Procedures Procedure Name Priority Date/Time Associated Diagnosis Comments XR THORACIC SPINE 3 VW Stat 05/09/2025 6:10 PM CDT XR CERVICAL SPINE 2 OR 3 VIEWS Stat 05/09/2025 4:12 PM CDT documented in this encounter Results * XR THORACIC SPINE 3 VW (05/09/2025 6:10 PM CDT) Anatomical Region Laterality Modality Spine Computed Radiogr aphy 05/09/2025 6:11 PM CDT Impressions 05/09/2025 7:13 PM CDT IMPRESSION: Please see below. Exam: XR THORACIC SPINE 3 VW Date/Time of Exam: 05/09/2025 6:10 PM Reason For Exam: Pain. Diagnosis: See Reason for Exam. Comparison: None. Findings: Three views of the thoracic spine demonstrate preservation of vertebral body height, intervertebral disc spacing, and alignment. Surgical clips in the retrocardiac present. Impresion: 1. Negative exam. Narrative Procedure Note Ramin Jonas MD - 05/09/2025 IMPRESSION: Please see below. Exam: XR THORACIC SPINE 3 VW Date/Time of Exam: 05/09/2025 6:10 PM Reason For Exam: Pain. Diagnosis: See Reason for Exam. Comparison: None. Findings: Three views of the thoracic spine demonstrate preservation of vertebral body height, intervertebral disc spacing, and alignment. Surgical clips in the retrocardiac present. Impresion: 1. Negative exam. Essence Dawn APRN DIAGNOSTIC IMAGING ORDTerrell FINLEY Final Result * XR CERVICAL SPINE 2 OR 3 VIEWS (05/09/2025 4:12 PM CDT) Anatomical Region Laterality Modality Spine Computed Radiogr aphy 05/09/2025 4:12 PM CDT Impressions 05/09/2025 5:22 PM CDT Impression: Unremarkable plain film cervical spine study. Narrative 05/09/2025 5:22 PM CDT Exam: XR CERVICAL SPINE 2 OR 3 VIEWS Date/Time of Exam: 05/09/2025 4:12 PM Reason For Exam: Pain Diagnosis: See Reason for Exam AP, lateral and odontoid views of the cervical spine are submitted. Vertebral body height and disc space height are well maintained and the vertebral bodies are in good alignment. The posterior laminar line is intact. Prevertebral soft tissues are normal. Procedure Note Albino Logan MD - 05/09/2025 Exam: XR CERVICAL SPINE 2 OR 3 VIEWS Date/Time of Exam: 05/09/2025 4:12 PM Reason For Exam: Pain Diagnosis: See Reason for Exam AP, lateral and odontoid views of the cervical spine are submitted. Vertebral body height and disc space height are well maintained and the vertebral bodies are in good alignment. The posterior laminar line is intact. Prevertebral soft tissues are normal. Impression: Unremarkable plain film cervical spine study. Essence Dawn APRN DIAGNOSTIC IMAGING ORDTerrell FINLEY Final Result documented in this encounter Visit Diagnoses Diagnosis Cervicalgia- Primary documented in this encounter Administered Medications Inactive Administered Medications - up to 3 most recent administrations Medication Order MAR Action Action Date Dose Rate Site ketorolac (TORADOL) injection 30 mg 30 mg, IM, ONE TIME ONLY, 1 dose, On Wed05/09/25 at 1545, Routine Given 05/09/2025 3:48 PM CDT 30 mg Butt ock, Right morphine 4 mg/mL injection 4 mg 4 mg, IM, ONE TIME ONLY, 1 dose, On Wed05/09/25 at 1700, Routine Given 05/09/2025 5:03 PM CDT 4 mg Arm, Right orphenadrine citrate (NORFLEX) 30 mg/mL injection 60 mg 60 mg, IM, ONE TIME ONLY, 1 dose, On Wed05/09/25 at 1545, Routine Given 05/09/2025 3:48 PM CDT 60 mg Butt ock, Right documented in this encounter Active and Recently Administered Medications Times are shown in CDT. Scheduled Medication Order 05/07/2025 05/08/2025 05/09/2025 ketorolac (TORADOL) injection 30 mg (COMPLETED) 30 mg, IM, ONE TIME ONLY, 1 dose, On Wed05/09/25 at 1545, Routine 1548 (Given - Provid er: Connie Bentley, MARCO) morphine 4 mg/mL injection 4 mg (COMPLETED) 4 mg, IM, ONE TIME ONLY, 1 dose, On Wed05/09/25 at 1700, Routine 1703 (Given - Provid er: Alvaro De León RN) orphenadrine citrate (NORFLEX) 30 mg/mL injection 60 mg (COMPLETED) 60 mg, IM, ONE TIME ONLY, 1 dose, On Wed05/09/25 at 1545, Routine 1548 (Given - Provid er: Connie Bentley, MARCO) documented in this encounter Additional Health Concerns Assessment Noted Time PHQ-9 Depression Total Score: 3 07/15/20 23 1:08 PM NUT CHOPPER documented as of this encounter Care Teams Environmental Health And Safety Leader Relationship Specialty Start Date End Date Jhony Terry MD [address] [place] [id number] PCP - General Family Practice 05/09/25 documented as of this encounter
[2025-05-17] VITALS (7 sets, daily range): BP systolic 111–124; BP diastolic 70–80; PULSE 60–91; RESP 14–17; TEMP 36.6; O2SAT 96–98
--- NOTE | 2025-05-17 10:32 | ECG_ITS ---
[facility] Test Date: 2025-05-17 Pat Name: Irena Negron Department: Room: Gender: Female Floor Framer: : 1985 Requested By: Barry Owusu Order Number: [id number] Gabriel MD: Irina Hooper M.D. Measurements Intervals [place] Rate: 93 P: 67 NE: 143 QRS: 29 QRSD: 81 T: 42 QT: 338 QTc: 422 Interpretive Statements SINUS RHYTHM INTERPRETATION BASED ON A DEFAULT AGE OF 40 YEARS No previous ECG available for comparison Electronically Signed On 05-19-2025 20:26:14 CDT by Irina Hooper M.D. [email or web address] [id number]
--- OUTSIDE RECORDS SUMMARY | 2025-05-17 10:33 | XMS_ITS | Encounter Summary ---
Author Organization [employer] Address 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
--- OUTSIDE RECORDS SUMMARY | 2025-05-17 10:33 | XMS_ITS | Clinical Summary ---
Author Organization [facility] Address [address] [place] [address] Phone Care Team Providers Care Dealer Sales Manager Name Role Phone Jhony Terry MD Primary Care Provider [phone] Allergies No known active allergies Medications DULoxetine (CYMBALTA) 60 mg Capsule, Delayed Release(E.C.) Take 60 mg by mouth daily. Active ibuprofen (MOTRIN) 400 mg tablet Take 800 mg by mouth every 6 hours as needed for Pain, Mild. Active HYDROcodone-aceta minophen (NORCO) 5-325 mg tabletIndications :Acute exacerbation of chronic low back pain Take 1 Tablet by mouth every 4 hours as needed for Pain, Break-Throug h. Max Daily Amount: 6 Tablets 18 Tablet 4 Active methocarbamoL (ROBAXIN) 100 mg/mL Solution Q6H 4 Active HYDROcodone-aceta minophen (NORCO) 7.5-325 mg Tablet Take 1 Tablet by mouth every 6 hours as needed for Pain, Moderate. Active HYDROcodone-aceta minophen (NORCO) 10-325 mg Tablet Take 1 Tablet by mouth every 4 hours as needed for Pain, Moderate. Active amphetamine-dextr oamphetamine (ADDERALL XR) 20 mg Extended Release 24 hour capsule Take 20 mg by mouth daily in the morning. Active Active Problems Problem Noted Date Diagnosed Date Gaseous abdominal distention 05/17/2023 Constipation by delayed colonic transit 05/17/20 23 Bulging of lumbar intervertebral disc 07/24/2022 Chronic bilateral low back pain with bilateral s ciatica 07/24/2022 Intractable low back pain 07/03/2022 Cigarette dependence 05/20/2016 Encounters Date Type Department Care Team Description 05/16/2025 External Device Data STL ABSTRACTION Provider, Abstract 05/15/2025 External Device Data [place] ABSTRACTION Provider, Abstract 05/15/2025 External Device Data [place] ABSTRACTION Provider, Abstract 05/09/2025 3:17 PM CDT - 05/09/2025 7:14 PM CDT Emergency [facility] Emergency Medicine [address] [place] [address] Cervicalgia (Primary Dx) Discharge Disposition: Home or Self Care 05/02/2025 External Device Data STL ABSTRACTION Provider, Abstract 05/01/2025 External Device Data STL ABSTRACTION Provider, Abstract 04/18/2025 External Device Data STL ABSTRACTION Provider, Abstract 02/14/2025 External Device Data ST[place] ABSTRACTION Provider, Abstract 02/14/2025 External Device Data STL ABSTRACTION Provider, Abstract from Last 3 Months Immunizations Immunization Administration Dates Next Due (M-M-R II/PRIORIX)(12 MO UP) MEASLES, MUMPS AND RUBELLA VIRUS VACCINE, 0.5 ML IM/SUBCUT 04/18/1991,03/26/1987 (TDVAX)(7 YRS UP) TETANUS AN D DIPHTHERIA TOXOIDS, ADSORBED (2 LF OF TETANUS TOXOID AND 2 LF OF DIPHTHERIA TOXOID), 0.5ML (PF), IM 04/04/2002 Dt Dtp Dtap Vaccine 05/19/1991, 9,12/23/1987,1986,02/26/1987 Hepatitis B Vaccine 06/13/2002 IPV/OPV 05/19/1991, 9,05/21/1987,1986 Family History Medical History Relation Name Comments Cancer Father Evans Peralta Lymphoma Lung Cancer Maternal Grandfather Faustino Breast Cancer Maternal Grandmother Joy My gre at grandma also had breast cancer. 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 Gender Identity Not on file Sexual Orientation Not on file Last Filed Vital Signs Vital Sign Reading [...] Mass Index 33.71 05/09/2025 3:21 PM CDT Plan of Treatment Health Maintenance Due Date Last Done Comments Pre-Diabetes and Diabetes Screening 1985 DTAP/TDAP/TD VACCINES (6 - Tdap) 04/05/2002 04/04/2002, 05/19/1991, 05/19/1991, Additional history exists HEPATITIS B VACCINES (2 of 3 - 3-dose series) 07/11/2002 06/13/2002 HPV/Cotest (21-29) 2006 HPV VACCINES (1 - 3-dose SCD M series) 2012 CERVICAL CANCER SCREENING 2015 HPV/Cotest (30-65) 2015 PAP SMEAR 2015 INFLUENZA VACCINE (#1) 2025 07/08/2022 Procedures Procedure Name Priority Date/Time Associated Diagnosis Comments XR THORACIC SPINE 3 VW Stat 05/09/2025 6:10 PM CDT XR CERVICAL SPINE 2 OR 3 VIEWS Stat 05/09/2025 4:12 PM CDT from Last 3 Months Results * XR THORACIC SPINE 3 VW [...] Unremarkable plain film cervical spine study. Essence Umer Dawn APRN DIAGNOSTIC IMAGING [place] Final Result from Last 3 Months Insurance [facility] MEDICAID [facility] Address: [id number] [place] [id number] Care Teams Dealer Sales Manager Relationship Specialty Start Date End Date Jhony Terry MD [address] [place] [address] [place] [address] PCP - General Family Practice 05/09/25
--- OUTSIDE RECORDS SUMMARY | 2025-05-17 10:33 | XMS_ITS | Encounter Summary ---
Author Organization [employer] Address 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
--- OUTSIDE RECORDS SUMMARY | 2025-05-17 10:33 | XMS_ITS | Encounter Summary ---
Author Organization [employer] Address 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
--- OUTSIDE RECORDS SUMMARY | 2025-05-17 10:33 | XMS_ITS | Patient Health Record ---
Author Organization [facility] Address [address] [place] [address] Support Name Relationship Address , [place] Emergency Contact Unknown Unavailable Irena Negron Guarantor Unknown Unavailable Care Team Providers Care Public Opinion Survey Taker Name Role Phone Roc David Primary Care Provider Unavailabl e Migration, Provider Unavailable Unavailable Reason For Referral No Information Medications Medication SIG (Take, Route, Frequency, Duration) [...] Diagnosis Migrated_Facility 0 0 06/24/2024 Provider Migration Migrated_Facility 0 0 06/25/2024 Provider Migration Plan Of Treatment No Information Medical (General) History Surgical History Surgery Date(Month/Year) Cyst Removal DNC Gallbladder removal Total Hysterectomy tubal
--- NOTE | 2025-05-17 10:39 | CT_ITS ---
WS: [id number] CT NECK WITHOUT CONTRAST HISTORY: Cervical radiculopathy TECHNIQUE: Contiguous 2 mm axial images are performed through the neck with intravenous contrast. Sagittal and coronal reformats are also submitted. All CT scans at [facility] use at least one of these dose optimization techniques: automated exposure control; mA and/or kV adjustment per patient size (includes targeted exams where dose is matched to clinical indication); or iterative reconstruction. CONTRAST: CONTRAST: None DLP: 253.13 mGy.cm COMPARISON: None available. Nasopharynx, oropharynx, hypopharynx and larynx are unremarkable. No soft tissue masses. Narrowing of the larynx is probably due to Valsalva maneuver. Torus tubarius and fossa of Rosenmuller and parapharyngeal fat are normal. Small bilateral cervical chain lymph nodes are identified. No pathologically enlarged lymph nodes. Thyroid gland and salivary glands are normally enhancing with no masses. No destructive bone lesions. There is a small central disc protrusion at C3-4. Visualized portions of the skull base demonstrate no abnormalities. Orbits and globes are within normal limits. No soft tissue masses. Visualized paranasal sinuses and mastoid air cells are normal. Lung apices are clear. CT/CT neck wo con [id number] IMPRESSION: 1. No cervical chain lymphadenopathy on this unenhanced neck CT. 2. Narrowing of the larynx is probably due to Valsalva maneuver during image r equirement. 3. Tiny central disc protrusion at C3-4. 4. No cervical spine fracture.
--- NOTE | 2025-05-17 10:59 | W.ED.EXTPRO ---
HPI - Extremity Problem General: Chief complaint: Extremity Injury, Upper Stated complaint: L side neck pain going down arm and in shoulder Time Seen by Provider: 05/17/25 10:39 History of Present Illness: 39-year-old female presents emergency room complaining of left-sided neck pain pain radiating to her shoulder and arm. She has had this for the last week. She was seen at another outlying emergency room x-ray of her neck did not show any acute changes she has previously an MRI within the last year this was reviewed today. She has been seen by her primary care doctor who has ordered an MRI she also seen a chiropractor. She had mild relief while she is on the steroids but is worsened again no trauma or specific injury no previous surgery she has seen pain clinic in the past for neck pain. Associated symptoms: Deny chest pain, fever(s) or rash Related Data Home Medications ?Medication ?Instructions ?Recorded ?Confirmed dextroamphetamine-amphetamine ER 20 mg PO DAILY 05/17/25 05/17/25 20 mg 24hr capsule,extend release (Adderall XR) hydrocodone 10 mg-acetaminophen 1 tab PO Q8H 05/17/25 05/17/25 325 mg tablet methocarbamol 750 mg tablet 750 mg PO Q8H PRN Pain 05/17/25 05/17/25 methylprednisolone 4 mg tablets in See Rx Instructions .Route .COMPLEX 05/17/25 05/17/25 a dose pack Previous Rx's ?Medication ?Instructions ?Recorded pen needle, diabetic 33 gauge x #100 ea 01/28/23 5 ibuprofen 800 mg tablet 800 mg PO Q8H PRN pain #60 tabs 07/10/24 sumatriptan succinate 100 mg See Rx Instructions PO .COMPLEX 07/10/24 tablet (Imitrex) #14 tabs diclofenac sodium 75 mg 75 mg PO Q12H PRN pain #20 tabs 05/17/25 tablet,delayed release hydrocodone 5 mg-acetaminophen 325 1 tab PO Q6H PRN pain #15 tabs 05/17/25 mg tablet prednisone 20 mg tablet 20 mg PO TID #15 tabs 05/17/25 tizanidine 4 mg tablet 4 mg PO Q6H PRN muscle spasticity 05/17/25 #20 tabs Allergies Allergy/AdvReac Type Severity Reaction Status Date / Time amoxicillin (From Augmentin) AdvReac Unknown Verified 05/17/25 10:37 clavulanic acid (From AdvReac Unknown Verified 05/17/25 10:37 Augmentin) Review of Systems Const: Denies: fever(s) or chills Card: Denies: chest pain Resp: Denies: dyspnea GI: Denies: abdominal pain : Denies: dysuria, urinary frequency or urinary urgency Musc: Reports: neck pain and extremity pain; Denies: back pain Skin/Breast: Denies: rash PFSH ED PFSH: Medical History Psychiatric care Obesity (BMI 30-39.9) Allergic rhinitis due to allergen Sebaceous cyst of axilla Salivary duct calculi Ovarian cyst Urinary tract infection Hx of migraines Chronic migraine Surgical History History of ovarian cystectomy Hx of cholecystectomy Hx of tubal ligation Family History Other Cancer Denies family history of Diabetes Dementia Hypertension Stroke Social History Smoking and tobacco/nicotine status: current every day tobacco/nicotine user cigarettes Packs smoked per day: 0.5 Quit status (tobacco/nicotine): considering quitting Second hand smoke exposure: Yes Alcohol intake: never Substance/Drug Use: unknown Adopted: No Caregiver/support person: No Lives independently: Yes Household members: children Housing: House Marital status: service: No Do you think of yourself as: Straight/Heterosexual Current gender identity: Female Physical Exam Const: GENERAL APPEARANCE: cooperative ORIENTATION/CONSCIOUSNESS: Yes awake, Yes oriented to person, Yes oriented to place and Yes oriented to time HENMT: COMMON NORMALS: normocephalic, atraumatic and hearing grossly normal bilaterally HEAD & SCALP: normocephalic and atraumatic Neck/C-Spine: OTHER: Patient has pain with sidebending towards the right and rotation to the right. Resp: COMMON NORMALS: normal respiratory effort, No retractions, No use of accessory muscles and clear to auscultation bilaterally AUSCULTATION: clear to auscultation bilaterally Cardio: COMMON NORMALS: regular rate, regular rhythm and No murmurs present (Cardio) RATE: regular rate RHYTHM: regular rhythm GI: COMMON NORMALS: Soft to palpation and No hepatosplenomegaly present AUSCULTATION: Yes normoactive bowel sounds PALPATION: Yes Soft to palpation, No Tenderness to palpation present (GI), No Guarding due to palpation present (GI) and Yes No hepatosplenomegaly present Extremity: COMMON NORMALS: normal to inspection, capillary refill normal, no clubbing, cyanosis or edema, no calf tenderness and no pedal edema OTHER: Deep tendon reflexes +1/4 biceps tendon sensation in the upper extremities normal. Vascular normal Neuro: SENSORIUM/ORIENTATION: Yes oriented to person, Yes oriented to place and Yes oriented to time Skin: COMMON NORMALS: no rashes or lesions noted GENERAL SKIN EXAM: no rashes or lesions noted Course Vital Signs: Vital signs: Vital Signs Temperature 97.9 F 05/17/25 10:28 Pulse Rate 67 05/17/25 13:17 Respiratory Rate 14 05/17/25 12:37 Blood Pressure 121/71 05/17/25 13:17 Pulse Oximetry 98 05/17/25 13:17 Oxygen Delivery Me thod Room Air 05/17/25 10:28 MDM - Extremity (Nontraumatic) Medical Decision Making Patient did have some improvement. She did get quite a bit better while she was on the steroid she has no fever today no red flag symptoms. Will CT did not show any acute fractures. Will discharge home with steroids tizanidine instead of her methocarbamol can use diclofenac instead of ibuprofen. Refer to Dr. Crockett. Medical Records I reviewed the patient's medical records. Lab Data Radiology Impressions Neck CT 05/17/25 10:39 IMPRESSION: 1. No cervical chain lymphadenopathy on this unenhanced neck CT. 2. Narrowing of the larynx is probably due to Valsalva maneuver during image requirement. 3. Tiny central disc protrusion at C3-4. 4. No cervical spine fracture. All radiology interpretation(s) finalized by discharge Discharge Plan Discharge Patient Disposition: Home Clinical Impression: Cervical radiculopathy Condition: Stable Prescriptions: New tizanidine 4 mg tablet 4 mg PO Q6H PRN (Reason: muscle spasticity) Qty: 20 0RF Rx Instructions: do not exceed 3 doses per 24 hrs prednisone 20 mg tablet 20 mg PO TID Qty: 15 0RF Rx Instructions: 1 p.o. 3 times daily x3 days, 1 p.o. twice daily x2 days, 1 p.o. daily x2 days diclofenac sodium 75 mg tablet,delayed release (DR/EC) 75 mg PO Q12H PRN (Reason: pain) Qty: 20 0RF hydrocodone-acetaminophen 5-325 mg tablet 1 tab PO Q6H PRN (Reason: pain) Qty: 15 0RF No Action ibuprofen 800 mg tablet 800 mg PO Q8H PRN (Reason: pain) Qty: 60 2RF sumatriptan succinate [Imitrex] 100 mg tablet See Rx Instructions PO .COMPLEX Qty: 14 5RF Rx Instructions: take 1 tab at onset of headache; if no relief, may repeat 1 tab after at least 2 hrs; max = 2 tabs/24 hrs PO (DME) pen needle, diabetic 33 gauge x 5/32 needle See Rx Instructions .ROUTE .MEDSUPPLY Qty: 100 5RF Rx Instructions: 1 time day hydrocodone-acetaminophen 10-325 mg tablet 1 tab PO Q8H methocarbamol 750 mg Tablet 750 mg PO Q8H PRN (Reason: Pain) dextroamphetamine-amphetamine [Adderall XR] 20 mg capsule,extended release 24hr 20 mg PO DAILY methylprednisolone 4 mg tablets,dose pack See Rx Instructions .ROUTE .COMPLEX Rx Instructions: TAKE BY MOUTH PER PACKAGE INSTRUCTION Discharge Orders: Discharge ED (Routine); Ordered 05/17/25 Ordered By: Barry Bruce Discharge Diet: Usual diet Discharge Activity: Limit activity as instructed Patient Instructions: Opioid Safety, Pain Management, Patient Portal & Dwayne Instructions Activity Restrictions/Additional Instructions: Thank you for choosing [facility] for your healthcare needs today. It is very important that you follow up as instructed or that you return to the Emergency Department should you have concerns or if your condition changes or worsens in any way. Emergency department visits are focused on emergent conditions, in some cases you may require further evaluation on an outpatient basis. You were seen in the emergency room with complaints of pain in your neck with pain rating down your left arm. We reviewed the previous MRI and it did a CT today. Your vital signs were otherwise stable. Will discharge you home with pain medication steroid taper a different muscle relaxer and an anti-inflammatory. Will make arrangements for you to have follow-up with Dr. Crockett in the office. (Please note that included in your discharge packet is information concerning opioid safety and pain management. This information is given to all patients were discharged from the ER regardless of their discharge diagnosis or the medicines they usually take or are prescribed.) Print Language: Tajik Coding Level of Care Code ED Cyber Security Specialist for Kaylee Coates
[2025-05-17] MEDS: orphenadrine 30 mg/mL Inj 2 mL 60 MG IM (11:24)
[2025-05-17] MEDS: morphine 4 mg/mL SDV 1 mL IVP ×2 (11:25→12:37)
[2025-05-17] MEDS: HYDROmorphone 0.5 MG/0.5 ML INJ IVP (13:17)
--- NOTE | 2025-05-18 06:58 | DCPLANNER ---
messaged ortho for er f/u
== END 2025-05-17 14:12 | disposition home or self-care (01) ==
PROVIDERS: Emergency Provider Family Medicine
DX: M54.12 Radiculopathy, cervical region (principal); F17.210 Nicotine dependence, cigarettes, uncomplicated
CPT/HCPCS: 70490; 93005; 96374; 96375; 99285; J1100; J1171; J1885; J2270; J2360

== ENCOUNTER 2025-05-30 10:02 | Emergency (ER) | payer OTHER, MEDICAID, SELFPAY ==
--- OUTSIDE RECORDS SUMMARY | 2024-06-24 04:00 | XMS_ITS ---
Author Organization [facility] Address [address] [place] [address] Support Name Relationship Address , Kelin Peralta Emergency Contact Unknown Unavailable Irena Albert Guarantor Unknown Unavailable Care Team Providers Care Ham Marker Name Role Phone David Brian Primary Care Provider Unavailabl e Migration, Provider Unavailable Unavailable REASON FOR VISIT EMR-Ian Encounters Encounter Location Date Provider Diagnosis Migrated_Facility 0 0 06/24/2024 Provider Migration Plan Of Treatment Medication Medication Name Sig Start Date Stop Date Notes HYDROcodone-Acetaminop hen 7.5-325 MG Oral Tablet 1 Tablet every 8 hours PRN 07/07/2023 07/14/2023 *Reorder from [facility] an for eRx and Interaction Alerts* HYDROcodone-Acetaminop hen 5-325 MG Oral Tablet 1 Tablet Every 12 hours PRN 09/16/2022 10/16/2022 *Reorder from [facility] an for eRx and Interaction Alerts* tiZANidine HCl 4 MG Tablet 1 Tablet every 12 hours PRN Oral 07/07/2023 07/12/2023 Progress Notes * Irena ALBERTDOB:1985 ( 39 yo F)Acc No.[id number]:06/24/2024 Patient: Irena GILL :1985 A ge:38 Y S ex:Female Phone: Address:[address], [place], [address] * Refills Stop tiZANidine HCl Tablet, 4 MG, Oral, 1 Tablet every 12 hours PRN Stop HYDROcodone-Acetaminophen 7.5-325 MG Oral Tablet, 1 Tablet every 8 hours PRN Stop HYDROcodone-Acetaminophen 5-325 MG Oral Tablet, 1 Tablet Every 12 hours PRN Subjective: * Chief Complaints: * E MR-Ian * * Date:
--- OUTSIDE RECORDS SUMMARY | 2024-06-25 04:00 | XMS_ITS ---
Author Organization [facility] Address [address] [place] [address] Support Name Relationship Address , Kelin Fabian Emergency Contact Unknown Unavailable Irena Albert Guarantor Unknown Unavailable Care Team Providers Care Butter Printer Name Role Phone Isidralorene David Primary Care Provider Unavailabl e Migration, Provider Unavailable Unavailable REASON FOR VISIT EMR-[facility] Medications Medication SIG (Take, Route, Frequency, Duration) Notes Start Date End Date Status Ibuprofen *Pick strength-f orm from Medispan for eRX* Active Cymbalta *Pick strength-f orm from Medispan for eRX* Active Social History Social History Additional Details Category Social Info Options Details Migrated Social History Migrated Social History Alcoholic beverages? - No, Applying for disability? - No, Are you or is there a chance you could be - No, Currently on disability? - No, Drug or substance abuse? - No, Education - Grade School, exposure to toxins/poisonous substances at work - No, I am interested in quitting. - Yes, Involved in any legal proceedings or lawsuits? - No, Marital Status - , Nonprescription drug use? - No, Participation in detoxification or rehabilitation - No, Smoking - 1/2 PPD, Smoking status (MU) - Current every day smoker, Working currently? - Yes Encounters Encounter Location Date Provider Diagnosis Migrated_Facility 0 0 06/25/2024 Provider Migration Plan Of Treatment No Information Progress Notes * Irena ALBERTDOB:1985 ( 39 yo F)Acc No.[id number]:06/25/2024 Patient: Irena GILL :1985 A ge:38 Y S ex:Female Phone: Address: [address], [place], [place], [address] Subjective: * Chief Complaints: * E MR-Ian * Medical History: Asthma, C onstipation, K idney stone, M igraines, * Surgical History: Cyst Removal DNC Gallbladder removal Total Hysterectomy tubal * Family History: M igrated Family History: : Cancer, c hronic pain, f ibromyalgia. * Social History: M igrated Social History: M igrated Social History: Alcoholic beverages? - No, A pplying for disability? - No, A re you or is there a chance you could be - No, C urrently on disability? - No, D rug or substance abuse? - No, E ducation - Grade School, e xposure to toxins/poisonous substances at work - No, I am interested in quitting. - Yes, I nvolved in any legal proceedings or lawsuits? - No, M arital Status - , N onprescription drug use? - No, P articipation in detoxification or rehabilitation - No, S moking - 1/2 PPD, S moking status (MU) - Current every day smoker, W orking currently? - Yes. * Medications: T akingCymbalta , Notes to Pharmacist: *Pick strength-form from Medispan for eRX*Ibuprofen , Notes to Pharmacist: *Pick strength-form from Medispan for eRX*Taking Cymbalta , Notes to Pharmacist: *Pick strength-form from Medispan for eRX*Taking Ibuprofen , Notes to Pharmacist: *Pick strength-form from Medispan for eRX* * * Date:
--- NOTE | 2025-05-30 10:06 | XR_ITS ---
WS: [id number] XR KUB [id number] REASON FOR EXAM: constipation FINDINGS: Post cholecystectomy. No free air or retroperitoneal air. Mild to moderate stool retention in the right and left colon with no significant colon distention. No significant volume of retained stool within the rectum. No small bowel distention. No mass or organomegaly. No significant abdominal or pelvic calcification No focal bone abnormality in the lumbar spine or bony pelvis. XR/XR KUB [id number] IMPRESSION: No significant abnormality.
--- OUTSIDE RECORDS SUMMARY | 2025-05-30 10:07 | XMS_ITS | Patient Health Record ---
Author Organization [facility] Address [address] [place] [address] Support Name Relationship Address , [place]in Peralta Emergency Contact Unknown Unavailable Irena Negron Guarantor Unknown Unavailable Care Team Providers Care Automobile Parts Assembler Name Role Phone Roc David Primary Care [...]
--- OUTSIDE RECORDS SUMMARY | 2025-05-30 10:07 | XMS_ITS | Clinical Summary ---
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 Essence Dawn APRN DIAGNOSTIC IMAGING [place] Final Result * XR CERVICAL SPINE [...] plain film cervical spine study. Essence Dawn TECHNOLOGY DEVELOPMENT INTERN DIAGNOSTIC IMAGING [place] Final Result from Last 3 Months Insurance [facility] MEDICAID [facility] Care Teams Shipfitter Apprentice Relationship Specialty Start Date End Date Jhony Terry MD [address] [place] [address] [place] [phone] PCP - General Family Practice 05/09/25
[2025-05-30 10:23] VITALS: BP 142/88; PULSE 77; RESP 18; TEMP 36.8; O2SAT 99; BMI 33.6
--- NOTE | 2025-05-30 11:09 | W.ED.ABDPA2 ---
HPI - Abdominal Pain General: Chief Complaint: Abdominal Pain Stated Complaint: no bowel movement in about 3 weeks Time Seen by Provider: 05/30/25 10:42 Source: patient Mode of arrival: ambulatory Limitations: no limitations History of Present Illness: 39-year-old female who states she has had constipation over the last 2 weeks patient has chronic back pain and is on narcotic states she has dealt with constipation in the past. States she been taking MiraLAX and enemas has not been able to have a bowel movement. States been having some abdominal fullness she denies any vomiting or fevers. Denies any dysuria Associated Symptoms: Reports constipation Related Data Home Medications ?Medication ?Instructions ?Recorded ?Confirmed dextroamphetamine-amphetamine ER 20 mg PO QAM 05/17/25 05/30/25 20 mg 24hr capsule,extend release (Adderall XR) hydrocodone 10 mg-acetaminophen 1 tab PO Q8H 05/17/25 05/30/25 325 mg tablet methocarbamol 750 mg tablet 750 mg PO Q8H PRN Pain 05/17/25 05/30/25 dextroamphetamine-amphetamine 20 20 mg PO DAILY 05/30/25 05/30/25 mg tablet lactulose 10 gram/15 mL oral 10 g PO BID 05/30/25 05/30/25 solution Previous Rx's ?Medication ?Instructions ?Recorded pen needle, diabetic 33 gauge x #100 ea 01/28/23 ibuprofen 800 mg tablet 800 mg PO Q8H PRN pain #60 tabs 07/10/24 sumatriptan succinate 100 mg See Rx Instructions PO .COMPLEX 07/10/24 tablet (Imitrex) #14 tabs diclofenac sodium 75 mg 75 mg PO Q12H PRN pain #20 tabs 05/17/25 tablet,delayed release tizanidine 4 mg tablet 4 mg PO Q6H PRN muscle spasticity 05/17/25 #20 tabs Allergies Allergy/AdvReac Type Severity Reaction Status Date / Time amoxicillin (From Augmentin) AdvReac Unknown Verified 05/17/25 10:37 clavulanic acid (From AdvReac Unknown Verified 05/17/25 10:37 Augmentin) Review of Systems GI: Reports: abdominal pain and constipation PFS ED PFSH: Medical History Psychiatric care Obesity (BMI 30-39.9) Allergic rhinitis due to allergen Sebaceous cyst of axilla Salivary duct calculi Ovarian cyst Urinary tract infection Hx of migraines Chronic migraine Surgical History History of ovarian cystectomy Hx of cholecystectomy Hx of tubal ligation Family History Other Cancer Denies family history of Diabetes Dementia Hypertension Stroke Social History Smoking and tobacco/nicotine status: current every day tobacco/nicotine user cigarettes Packs smoked per day: 0.5 Quit status (tobacco/nicotine): considering quitting Second hand smoke exposure: Yes Alcohol intake: never Substance/Drug Use: unknown Adopted: No Caregiver/support person: No Lives independently: Yes Household members: children Housing: House Marital status: service: No Do you think of yourself as: Straight/Heterosexual Current gender identity: Female Physical Exam Const: COMMON NORMALS: no acute distress, patient oriented x3 and healthy appearing HENMT: COMMON NORMALS: normocephalic and atraumatic HEAD & SCALP: normocephalic and atraumatic Eye: COMMON NORMALS: conjunctivae normal CONJUNCTIVA: Yes conjunctivae normal Neck/C-Spine: COMMON NORMALS: full ROM and supple Chest: COMMONS NORMALS: normal inspection of the chest Resp: COMMON NORMALS: normal respiratory effort Cardio: COMMON NORMALS: regular rate, regular rhythm and No murmurs present (Cardio) RATE: regular rate RHYTHM: regular rhythm GI: COMMON NORMALS: Normal to inspection, nondistended, normoactive bowel sounds present, Soft to palpation, non-tender and no masses PALPATION: Yes Soft to palpation Extremity: COMMON NORMALS: normal to inspection and full ROM Neuro: COMMON NORMALS: patient oriented x3, moves all extremities and no focal motor deficits Psych: COMMON NORMALS: mental status grossly normal, Normal thought process present and cooperative THOUGHT PROCESS: Normal thought process present Skin: COMMON NORMALS: no rashes or lesions noted and no wounds GENERAL SKIN EXAM: no rashes or lesions noted Course Vital Signs: Vital signs: Vital Signs Temperature 98.2 F 05/30/25 10:23 Pulse Rate 70 05/30/25 12:01 Respiratory Rate 18 05/30/25 10:23 Blood Pressure 132/90 05/30/25 12:01 Pulse Oximetry 95 05/30/25 12:01 Oxygen Delivery Me thod Room Air 05/30/25 11:31 MDM - Abdominal Pain Medical Decision Making Patient presents here with abdominal pain along with constipation differential includes constipation diverticulitis pancreatitis appendicitis cholecystitis small bowel obstruction. These etiologies were considered and felt less likely based on history exam and workup. She had no white count her abdominal exam is benign so she has no signs of pancreatitis or appendicitis or cholecystitis. No vomiting x-ray shows no signs of obstructions or no signs of small bowel obstruction. Labs here are reviewed with no acute abnormality no white count. X-ray KUB does show constipation with no signs of bowel obstruction. All of her symptoms are likely due to constipation did give her lactulose here along with glycerin suppository she would like to go home and try to have a bowel movement at home. She is to continue MiraLAX at home she is to follow-up with her PCP and return if worsening she understands and agrees to plan. Medical Records I reviewed the patient's medical records. Lab Data I reviewed the patient's lab results. 05/30/25 11:14 05/30/25 11:14 Labs/Radiology: Radiology Impressions KUB X-Ray 05/30/25 10:06 IMPRESSION: No significant abnormality. Laboratory Results WBC 6.01 10^3/uL (3.29-11.43) 05/30/25 11:14 RBC 3.74 10^6/uL (3.85-5.65) L 05/30/25 11:14 Hgb 11.60 g/dL (11.27-16.99) 05/30/25 11:14 Hct 35.2 % (36-47) L 05/30/25 11:14 MCV 94.1 fl (85-98) 05/30/25 11:14 MCH 31.0 pg (27-33) 05/30/25 11:14 MCHC 33.0 g/dL (30-55) 05/30/25 11:14 RDW 12.3 % (12.1-15.1) 05/30/25 11:14 Plt Count 182 10^3/cmm (157-399) 05/30/25 11:14 MPV 9.2 fL (7.4-10.4) 05/30/25 11:14 Neut % (Auto) 62.1 % 05/30/25 11:14 Lymph % (Auto) 27.1 % 05/30/25 11:14 [place] % (Auto) 8.0 % 05/30/25 11:14 Eos % (Auto) 1.8 % 05/30/25 11:14 Baso % (Auto) 0.5 % 05/30/25 11:14 Neut # (Auto) 3.73 10^3/uL (1.8-7.7) 05/30/25 11:14 Lymph # (Auto) 1.6 10^3/uL (0.8-4.8) 05/30/25 11:14 [place] # (Auto) 0.5 10^3/uL (0.2-0.9) 05/30/25 11:14 Eos # (Auto) 0.1 10^3/uL (0.0-0.8) 05/30/25 11:14 Baso # (Auto) 0.0 10^3/uL (0.0-0.1) 05/30/25 11:14 Nucleated RBC % (auto) 0 % 05/30/25 11:14 Nucleated RBCs # 0.0 /100WBC 05/30/25 11:14 Sodium 137 mmol/L (136-145) 05/30/25 11:14 Potassium 3.9 mmol/L (3.5-5.1) 05/30/25 11:14 Chloride 103 mmol/L (98-107) 05/30/25 11:14 Carbon Dioxide 27 mmol/L (22-29) 05/30/25 11:14 Anion Gap 10.9 (5-19) 05/30/25 11:14 BUN 15 mg/dL (6-20) 05/30/25 11:14 Creatinine 0.7 mg/dL (0.5-0.9) 05/30/25 11:14 GFR Calculation 93.2 mL/min (90-130) 05/30/25 11:14 Glucose 86 mg/dL (65-115) 05/30/25 11:14 Calculated Osmolality 284 mOsm/kg (285-295) L 05/30/25 11:14 Calcium 9.0 mg/dL (8.5-10.5) 05/30/25 11:14 Total Bilirubin 0.5 mg/dL (0.15-1.2) 05/30/25 11:14 AST 11 U/L (0-32) 05/30/25 11:14 ALT 12 U/L (0-33) 05/30/25 11:14 Alkaline Phosphatase 43 U/L (35-105) 05/30/25 11:14 Total Protein 6.6 g/dL (6.6-8.7) 05/30/25 11:14 Albumin 4.0 g/dL (3.5-5.2) 05/30/25 11:14 Globulin 2.6 g/dL (1.3-4.6) 05/30/25 11:14 Lipase 15 U/L (13-60) 05/30/25 11:14 HCG, Qual Negative (Negative) 05/30/25 11:14 All radiology interpretation(s) finalized by discharge Discharge Plan Discharge Patient Disposition: Home Clinical Impression: Constipation Condition: Stable Prescriptions: No Action ibuprofen 800 mg tablet 800 mg PO Q8H PRN (Reason: pain) Qty: 60 2RF sumatriptan succinate [Imitrex] 100 mg tablet See Rx Instructions PO .COMPLEX Qty: 14 5RF Rx Instructions: take 1 tab at onset of headache; if no relief, may repeat 1 tab after at least 2 hrs; max = 2 tabs/24 hrs PO (DME) pen needle, diabetic 33 gauge x 5/32 needle See Rx Instructions .ROUTE .MEDSUPPLY Qty: 100 5RF Rx Instructions: 1 time day hydrocodone-acetaminophen 10-325 mg tablet 1 tab PO Q8H methocarbamol 750 mg Tablet 750 mg PO Q8H PRN (Reason: Pain) dextroamphetamine-amphetamine [Adderall XR] 20 mg capsule,extended release 24hr 20 mg PO QAM tizanidine 4 mg tablet 4 mg PO Q6H PRN (Reason: muscle spasticity) Qty: 20 0RF Rx Instructions: do not exceed 3 doses per 24 hrs diclofenac sodium 75 mg tablet,delayed release (DR/EC) 75 mg PO Q12H PRN (Reason: pain) Qty: 20 0RF dextroamphetamine-amphetamine 20 mg tablet 20 mg PO DAILY lactulose 10 gram/15 mL solution 10 g PO BID Discharge Orders: Discharge ED (Routine); Ordered 05/30/25 Ordered By: Jose Mulligan Referrals: Jhony Terry MD [Primary Care Provider, Family Practice] - 4-7 days Discharge Diet: Advance as tolerated Discharge Activity: Resume usual activity Patient Instructions: Constipation (ED) Print Language: Beninese Coding Level of Care Code ED Network Coordinator for Kaylee Coates
[2025-05-30 11:20] LABS: Hematocrit 35.2 % (36-47); Hemoglobin 11.60 g/dL (11.27-16.99); Mean Corpuscular HGB Conc 33.0 g/dL (30-55); Mean Corpuscular Hemoglobin 31.0 pg (27-33); Mean Corpuscular Volume 94.1 fl (85-98); Nucleated Red Blood Cells % 0 %; Platelet Count 182 10^3/cmm (157-399); Red Blood Count 3.74 10^6/uL (3.85-5.65); White Blood Count 6.01 10^3/uL (3.29-11.43)
[2025-05-30] MEDS: lactulose oral liq 20 gm/30 mL UDC 30 GM PO (11:29)
[2025-05-30 11:31] VITALS: BP 139/92; PULSE 80; O2SAT 94
[2025-05-30 11:38] LABS: HCG, Serum Qual Negative (Negative)
[2025-05-30 11:46] LABS: Alanine Aminotransferase 12 U/L (0-33); Albumin Level 4.0 g/dL (3.5-5.2); Alkaline Phosphatase 43 U/L (35-105); Anion Gap 10.9 (5-19); Aspartate Amino Transferase 11 U/L (0-32); Blood Urea Nitrogen 15 mg/dL (6-20); Calcium 9.0 mg/dL (8.5-10.5); Carbon Dioxide 27 mmol/L (22-29); Chloride 103 mmol/L (98-107); Creatinine Clr Calc Pharmacy 116.4794; Globulin 2.6 g/dL (1.3-4.6); Glucose 86 mg/dL (65-115); Lipase 15 U/L (13-60); Osmolality Calculated 284 mOsm/kg (285-295); Potassium 3.9 mmol/L (3.5-5.1); Sodium 137 mmol/L (136-145); Total Protein 6.6 g/dL (6.6-8.7)
--- NOTE | 2025-05-30 11:48 | PC.NURSE ---
While giving pt her ordered medications, pt stated I will not sit on a toilet here, I do not poop in public. I will go home and use my restroom. I just want to make sure I'm safe to go home and use my enemas, that I don't have impaction or a tear. Dr. Mulligan notified and aware.
[2025-05-30 12:01] VITALS: BP 132/90; PULSE 70; O2SAT 95
== END 2025-05-30 12:01 | disposition home or self-care (01) ==
PROVIDERS: Emergency Provider Emergency Medicine; PCP Family Medicine
DX: K59.00 Constipation, unspecified (principal); F17.210 Nicotine dependence, cigarettes, uncomplicated
CPT/HCPCS: 36415; 74018; 80053; 83690; 84703; 85025; 99284; J9999

== ENCOUNTER → 2025-06-07 15:11 | Outpatient (BNVA) | payer OTHER, MEDICAID, SELFPAY | PROVIDERS: PCP Family Medicine; Visit Provider Orthopaedic Surgery | DX: M54.12 Radiculopathy, cervical region (principal); M54.2 Cervicalgia; M54.9 Dorsalgia, unspecified | CPT/HCPCS: 72050 ==